=== PATIENT | male | born 1955 | race Caucasian/White ===

== ENCOUNTER 2019-07-03 17:29 | Inpatient (IN) | payer BC ==
[~2019-07-03 17:29] MED LIST: ISOVUE-370 76%-LOCM 1 ML ONE; Rocuronium Bromide 10 MG/ML (10ML VIAL) ONE; Succinylcholine Chloride 20 MG/ML 10 ml SYRINGE FS ONE
[2019-07-03 18:00] LABS: #Lymphocytes 0.5 thou/uL (1.20-3.40); #Monocytes 0.4 thou/uL (0.11-0.59); #Neutrophils 7.7 thou/uL (1.40-6.50); %Basophils 0.2 % (0.0-1.0); %Eosinophils 0.3 % (0.0-10.0); %Lymphocytes 5.9 % (21.0-51.0); %Monocytes 4.6 % (0.0-10.0); Hemoglobin 11.7 g/dL (14.0-18.0); Mean Corpuscular Hemoglobin 31.2 pg (27.0-31.0); Mean Corpuscular Volume 91.8 fL (78.0-98.0); Mean Platelet Volume 8.7 fL (7.4-10.4); Platelet Count 151 thou/uL (130-400); RBC Distribution Width 12.6 % (11.5-14.5); Red Blood Cell (RBC) Count 3.76 mill/uL (4.70-6.10); White Blood Cell (WBC) Count 8.6 thou/uL (4.8-10.8)
[2019-07-03 18:21] LABS: ALT (SGPT) 21 U/L (8-55); AST (SGOT) 22 U/L (5-34); Albumin 4.4 g/dL (3.4-4.8); Alkaline Phosphatase 83 U/L (40-110); Anion Gap 17 mmol/L (10-20); BUN (Urea Nitrogen) 32 mg/dL (8.4-25.7); Bilirubin, Total 0.9 mg/dL (0.2-1.2); Calc. Creatinine Clearance 0 mL/min (70-130); Calcium 9.6 mg/dL (7.8-10.44); Carbon Dioxide 17 mmol/L (23-31); Chloride 107 mmol/L (98-107); Estimated GFR-MDRD 31; Glucose 124 mg/dL (80-115); Lipase 70 U/L (8-78); Protein, Total 7.4 g/dL (5.8-8.1); Sodium 136 mmol/L (136-145)
[2019-07-03] MEDS ORDERED: Ondansetron PF 4 MG/2 ML Vial ONE (18:28)
[2019-07-03] MEDS ORDERED: Morphine 4 MG/ML VIAL ONE (18:28)
--- NOTE | 2019-07-03 19:43 | CT ---
CT ABDOMEN AND PELVIS WITH IV CONTRAST 07/03/2019 CLINICAL INFORMATION: Lower abdominal pain after eating one day ago. Vomiting. COMPARISON: 04/15/2013 FINDINGS: Contrast was injected via the right foot. However the contrast persists in right lower extremity vein s without enhancement of the parenchymal organs or remaining vascular structures. This examination is primarily a noncontrasted CT exam with respect to parenchymal organs. Lower Chest: Calcified granuloma seen right lung base. Lung bases are otherwise clear. Vessels: Scattered mild vascular calcifications are seen in the abdominal aorta and involving the rickie ac arteries. Abdomen: Gallbladder: Within normal limits for CT imaging. Suggested gallbladder calculi noted on prior CT exa m are not well delineated on this study. Liver: Grossly normal nonenhanced CT appearance. Spleen: Grossly normal nonenhanced CT appearance. Pancreas: Grossly normal nonenhanced CT appearance Adrenals: Grossly normal nonenhanced CT appearance. Kidneys: Renal cortical thinning is seen with moderate appearance the kidneys bilaterally. No renal o r ureteral calculi are seen bilaterally. Bowel: There are postsurgical changes in the region of the rectum with anastomosis present in this re gion. Dilated fluid-filled loops of ileum are visualized. Loops of jejunum are more normal in caliber. There is a transition point seen within the lower pelvis. The dilated loops of fluid-filled bowel measure up to 4.7 cm. Findings may represent a closed loop type obstruction. There are postsurgical changes involving loops of small bowel in the right abdomen at site of prior r ight lower quadrant ostomy. Loops of small bowel associated with postsurgical changes in this region are normal in caliber. Appendix: The appendix is visualized and normal in caliber. Peritoneum/retroperitoneum: Tiny amount of fluid is seen in the right lower quadrant adjacent to the dilated loops of small bowel. There is soft tissue appearing density in the presacral space posterior to the rectum which may related to scarring secondary to prior postsurgical changes as this is in the region of the anastomosis. However, no prior studies are available to evaluate for stability of this area. Abdominal Wall: Midline scarring is present. Pelvis: Reproductive Organs: No pelvic masses. Pelvis within normal limits. Bladder: within normal limits. Bones: Multilevel degenerative changes are seen in the spine. IMPRESSION: 1. Evidence of a small bowel obstruction, and findings may be related to closed loop small bowel obst ruction as only portions of loops of small bowel are dilated with transition point seen in the upper pelvis just to the right of midline. Loops of small bowel measure up to 4.7 cm. 2. Tiny amount of free fluid adjacent to dilated loops of small bowel. 3. Postsurgical changes involving the rectum as well as a loop of small bowel in the right lower quad rant. As described above, there is soft tissue density seen posterior to the rectum in a presacral location which is probably related to scarring as this is at the at the level of postsurgical change. Depending on clinical concern, follow-up evaluation can be performed..
[2019-07-03] MEDS ORDERED: Benzocaine 20% Spray 60 ML CAN ONE ×2 (19:55→19:57)
[2019-07-03] MEDS ORDERED: Fentanyl 100 MCG/2 ML VIAL ONE (19:55)
[2019-07-03] MEDS ORDERED: Pantoprazole 40 MG VIAL ONE (20:14)
[2019-07-03] MEDS ORDERED: Bupivacaine/Epinephrine 0.25% 30 ML VIAL ONE (20:38)
--- NOTE | 2019-07-03 20:51 | RAD ---
SUPINE ABDOMEN: 07/03/19 INDICATION: Assess NG tube placement. FINDINGS/IMPRESSION: NG tube passes through the EG junction. The tip overlies the upper gastric fundus in the left upper q uadrant. There are gas filled dilated loops of small bowel noted in the mid abdomen. Stool and gas se en in the colon. POS: AGW
[2019-07-03] MEDS ORDERED: cefOXitin 2 GM VIAL ONE (21:07)
[2019-07-03] MEDS ORDERED: Midazolam HCl 2 mg/2 ml Vial ONE (21:19)
[2019-07-03] MEDS ORDERED: Norepinephrine 4 MG/4 ML VIAL ONE (21:19)
--- NOTE | 2019-07-04 01:21 | HP ---
CHIEF COMPLAINT: Abdominal pain. HISTORY OF PRESENT ILLNESS: Mr. Burton is a 63-year-old man with acute onset of severe abdominal pain last night after eating dinner. He has never had any pain like this before. He states that he hoped that the pain will go away after a good night's sleep, but he had difficulty sleeping, because of the pain. When he woke up this morning, it was just as bad as it was last night. He tried to tough it out at home, had multiple episodes of nausea and vomiting, which did not relieve the pain and finally came into the emergency room, because the pain was excruciating. He states that it has been constant and severe since its onset, but has been relieved by pain medication and NG tube placement in the emergency room. He has not had any fevers or chills. He had a small bowel movement this morning, which did not relieve his pain, but has not passed any gas since yesterday. PAST MEDICAL HISTORY: Coronary artery disease, chronic renal insufficiency, severe osteoarthritis, rectal cancer, hyperlipidemia, hypertension and obstructive sleep apnea. The patient denies knowledge of any history of heart failure, but does take Lasix when he notices worsening swelling in his legs or that he gets winded easily. He does not know what his last ejection fraction was and has not seen his swimming pool installer in about 2 years, although he is quite active in his daily life. . PAST SURGICAL HISTORY: Left shoulder surgery, right knee replacement, low anterior resection with diverting ileostomy by Dr. Braswell in 2013 with subsequent ileostomy reversal, coronary artery bypass grafting [place] [address] Fall and coronary stents by Dr. Yadav in 2013. SOCIAL HISTORY: Patient quit smoking about a year ago. No history of heavy alcohol use or drug use. FAMILY HISTORY: Noncontributory. REVIEW OF SYSTEMS: Negative except per HPI. The patient does have chronic back and joint pain, which limits his activity, but he denies any exertional angina. ALLERGIES: NO KNOWN DRUG ALLERGIES. MEDICATIONS: Include: 1. Amlodipine. 2. Carvedilol. 3. Fluoxetine. 4. Tylenol No. 4. 5. Atorvastatin. 6. Aspirin. 7. Tizanidine. PHYSICAL EXAMINATION: VITAL SIGNS: The patient is not tachycardic or hypotensive. Room air sats are okay, respiratory rate is normal. He had 10/10 abdominal pain when he arrived, but denies pain at rest after receiving morphine and fentanyl. GENERAL: Reveals a healthy-appearing man, in no acute distress. He is not flushed or toxic in appearance. He is not jaundiced or icteric. HEENT: Unremarkable. NECK: Supple without lymphadenopathy or thyroid nodules. HEART: Regular in its rate and rhythm without murmurs, rubs, or gallops. LUNGS: Clear to auscultation bilaterally. ABDOMEN: Soft, but distended. He has a healed midline incision without palpable masses or obvious hernias. He is diffusely tender to palpation with some guarding in the lower abdomen. He exhibits rebound tenderness in the right greater than left lower quadrant. No rigidity. EXTREMITIES: Warm and well perfused without significant edema. NEUROLOGIC: No focal deficits. PSYCHIATRIC: Alert, oriented and appropriate. LABORATORY DATA: White count is normal at 8.6, hematocrit is 34.5, platelets 151. BUN and creatinine are elevated at 32 and 2.19. This does not appear to be significantly elevated from his baseline. His creatinine was 1.97 and 2.17 in 2015. IMAGING: CT images are reviewed and I agree with the written report. The patient has a very dilated loop of small intestine with some free fluid surrounding this dilated loop in the pelvis. He has very decompressed distal small bowel and normal caliber proximal small bowel, very concerning for closed loop obstruction. His stomach is dilated and fluid-filled, but he has an NG tube in place and over 500 mL of thick enteric contents have been removed from the stomach since that CT was done. ASSESSMENT: Small bowel obstruction with peritoneal signs on exam and concern for closed loop obstruction on CT. I believe the patient has bowel at risk for irreversible damage, although his lactate currently is normal. I have recommended proceeding emergently to the operating room tonight for lysis of adhesions and possible small bowel resection if irreversible damage is encountered. The patient is in agreement with this plan. Inherent risks include, but are not limited to, bleeding, infection, risks of anesthesia, damage to bowel or other intraabdominal structures, anastomotic leak, and need for other procedures. He understands and accepts these risks and wishes to proceed and has been posted emergently for the operating room. Antibiotics radiation monitor have been ordered. All of his questions were answered. We will consult Cardiology for assistance with perioperative management as well as his trolley cleaner, Dr. Bearden. Job ID: [id number] [facility]
[2019-07-04] MEDS ORDERED: Rocuronium Bromide 50 MG/5 ML VIAL ONE (03:14)
[2019-07-04] MEDS ORDERED: Fentanyl BOLUS 250 ML IVPB PRN (04:22)
[2019-07-04] MEDS ORDERED: DISCONTINUE PREVIOUS NARCOTIC PAIN MEDICATIONS AND BENZODIAZEPINES FS SCH (04:22)
[2019-07-04] MEDS ORDERED: Morphine 2 MG/ML SYRINGE SLOW IVP PRN ×2 (04:22→09:52)
[2019-07-04] MEDS ORDERED: Lorazepam 2 MG/ML VIAL SLOW IVP PRN (04:22)
[2019-07-04] MEDS ORDERED: Propofol 1,000 MG/100 ML VIAL IV PRN (04:22)
[2019-07-04] MEDS ORDERED: fentaNYL Citrate/PF 2,000 MCG in Sodium Chloride 0.9% 60 ML IV SCH (04:22)
[2019-07-04] MEDS ORDERED: Propofol BOLUS 1,000 MG/100 ML VIAL IV PRN (04:22)
[2019-07-04] MEDS: Sodium Chloride 0.9% 1,000 ML IV SCH ×3 (04:40→19:43)
[2019-07-04] MEDS: cefOXitin Sodium/Dextrose,Iso 1 GM in Premix Bag 1 BAG IVPB SCH ×2 (05:04→14:45)
[2019-07-04 05:09] LABS: Hemoglobin 10.8 g/dL (14.0-18.0); Mean Corpuscular Hemoglobin 30.6 pg (27.0-31.0); Mean Corpuscular Volume 92.6 fL (78.0-98.0); Mean Platelet Volume 8.4 fL (7.4-10.4); Platelet Count 136 thou/uL (130-400); RBC Distribution Width 12.6 % (11.5-14.5); Red Blood Cell (RBC) Count 3.54 mill/uL (4.70-6.10); White Blood Cell (WBC) Count 5.3 thou/uL (4.8-10.8)
[2019-07-04 05:25] LABS: Band 32 % (5-11); Eosinophils 1 % (0-10); Lymphocytes 4 % (21-51); MDiff Complete? YES; Metamyelocyte 1 % (0-0); Monocytes 5 % (0-10); Neutrophil 57 % (42-75); Platelet Morphology Comment Appears Adequate
[2019-07-04 05:26] LABS: ALT (SGPT) 14 U/L (8-55); AST (SGOT) 15 U/L (5-34); Albumin 3.4 g/dL (3.4-4.8); Alkaline Phosphatase 67 U/L (40-110); Anion Gap 12 mmol/L (10-20); BUN (Urea Nitrogen) 36 mg/dL (8.4-25.7); Bilirubin, Total 0.9 mg/dL (0.2-1.2); Calc. Creatinine Clearance 0 mL/min (70-130); Calcium 7.9 mg/dL (7.8-10.44); Carbon Dioxide 20 mmol/L (23-31); Chloride 111 mmol/L (98-107); Estimated GFR-MDRD 31; Globulin 2.2 g/dL (2.4-3.5); Glucose 165 mg/dL (80-115); Potassium 4.7 mmol/L (3.5-5.1); Protein, Total 5.6 g/dL (5.8-8.1); Sodium 138 mmol/L (136-145)
[2019-07-04] MEDS ORDERED: FLU VACC QS2019-20(6MOS UP)/PF 60 MCG/0.5 ML SYRINGE IM ONE (05:45)
[2019-07-04] MEDS ORDERED: DC Sedation Protocol FS ONE (08:39)
--- NOTE | 2019-07-04 09:51 | RAD ---
FRONTAL RADIOGRAPH CHEST: Date: 07/04/19 COMPARISON: 12/01/15. HISTORY: Evaluate chest following central line placement. FINDINGS: Endotracheal tube and nasogastric tube in proper position. Left-sided vascular catheter present, dist al tip overlying the region of the proximal SVC. Stable right-sided Port-A-Cath. Increased linear den sity in the left base may signify infiltrate or volume loss. IMPRESSION: Lines and tubes as detailed above. POS: OFF
[2019-07-04] MEDS ORDERED: Morphine 4 MG/ML VIAL ONE (09:54)
[2019-07-04] MEDS: Enoxaparin Sodium 30 MG/0.3 ML SYRINGE SC SCH (10:21)
[2019-07-04] MEDS: Pantoprazole 40 MG VIAL IVP SCH (10:21)
[2019-07-04] MEDS: Acetaminophen 650 MG in Premix Bag 1 BAG IVPB SCH ×2 (10:44→17:16)
[2019-07-04] MEDS ORDERED: Carvedilol 25 MG TAB PER TUBE SCH (11:15)
--- NOTE | 2019-07-04 11:53 | CON ---
DATE OF CONSULTATION: REASON FOR CONSULTATION: Elevated creatinine. HISTORY OF PRESENT ILLNESS: This is a very pleasant 63-year-old gentleman, who presented to the hospital with a history of CKD in the past with abdominal pain with small bowel obstruction. The patient's creatinine was 1.9 previously, which increased to 2.1 today, so I was consulted. The patient has not seen a hris specialist in five years. PAST MEDICAL HISTORY: Significant for coronary artery disease, CKD, osteoarthritis, rectal cancer, hyperlipidemia, left shoulder surgery, right knee replacement, and diverting ileostomy. SOCIAL HISTORY: No alcohol or drug use. FAMILY HISTORY: Negative for ESRD. ALLERGIES: REVIEWED. HOME MEDICATIONS: List reviewed. REVIEW OF SYSTEMS: A 15-point review of system was performed, negative except for positives noted above. GENERAL: HEAD: NECK: No swelling or lumps. NOSE: No epistaxis or discharge. EYES: No diplopia or pain. RESPIRATORY: CARDIOVASCULAR: GASTROINTESTINAL: /MANUFACTURING LEADER: MUSCULOSKELETAL: No joint pain. NEUROPSYCHIATRIC SYSTEMS: No suicidal ideation. No ideation. SKIN: Denies any rash or ulcer. CONSTITUTIONAL: No fever or chills. PHYSICAL EXAMINATION: GENERAL: The patient is awake and alert. VITAL SIGNS: Afebrile, pulse 81, breathing 16, and blood pressure 176/60. GENERAL APPEARANCE AND MENTAL STATUS: Fair. HEAD/NECK: Normocephalic. Atraumatic. EYES: EOMI. No deformity. EARS: Clear. No ulcers. NOSE: Intact. No lesions. MOUTH: Clear. No discharge. THROAT: Clear. No exudate. LUNGS: Clear. No crackles. CARDIAC: S1, S2. No rub. ABDOMEN: Benign. Bowel sounds positive. GENITALIA/RECTUM: Masters absent. BACK/EXTREMITIES: Edema 0+. NEUROLOGICAL: Alert and motor intact. SKIN: LYMPHATICS: LABORATORY DATA: Hemoglobin is 10.8 and creatinine 2.0. ASSESSMENT: Acute kidney injury with chronic kidney disease stage 3 due to acute tubular necrosis because of decreased effective arterial blood volume. Continue gentle hydration; hypertension, anemia, stable. No indication for dialysis at this time. Job ID: [id number]
[2019-07-04] MEDS: Morphine 4 MG/ML VIAL SLOW IVP PRN (12:33)
--- NOTE | 2019-07-04 12:34 | CON ---
DATE OF CONSULTATION: HISTORY OF PRESENT ILLNESS: José Luis Burton is a 63-year-old morbidly obese gentleman, who underwent emergency surgery last night, left overnight on the vent. Pulmonary is consulted regarding his vent management. He was presented with abdominal pain. CT abdomen shows small bowel obstruction, closed-loop obstruction, small amount of free fluid was seen. PLAN: He was taken to surgery. Please review the surgeon's note. On the vent this morning, he is awake, alert, and responsive. Still having some abdominal pain, but tells me he is much improved. Denies difficulty breathing. PAST MEDICAL HISTORY: Chronic renal failure, sleep apnea, morbid obesity, colon cancer, hypertension, hyperlipidemia, COPD. PAST SURGICAL HISTORY: CABG, lumbar surgery, shoulder surgery, small-bowel ileostomy, MediPort placement. SOCIAL HISTORY: Still smoking. Alcohol minimal. HOME MEDICATIONS: Include, 1. Amlodipine/benazepril . 2. Coreg 25. 3. Tizanidine. 4. Lipitor 80. 5. Tylenol. 6. Prozac. ALLERGIES: NONE. SOCIAL HISTORY: Otherwise unremarkable. FAMILY HISTORY: Noncontributory. PHYSICAL EXAMINATION: GENERAL: On the vent, he is awake, alert, responsive. VITAL SIGNS: Pulse 81, blood pressure 130/70, saturations 100%, respirations 20. CHEST: Decreased breath sounds. No wheezing. CARDIAC: Normal S1 and S2. No gallops. ABDOMEN: Soft. EXTREMITIES: No edema. NEUROLOGIC: He is awake, alert, and responsive. DIAGNOSTIC DATA: X-ray shows questionable left-sided infiltrate. White count 5000, hemoglobin and hematocrit 10 and 32, platelet count 136. LABORATORY DATA: Creatinine 2.16. ASSESSMENT: 1. Status post lap, acute abdomen. 2. Respiratory failure. 3. Chronic obstructive pulmonary disease. 4. Sleep apnea. 5. Azotemia. 6. History of colon cancer. He will be weaned and extubated. Neb treatment. PT. Supportive care. Home CPAP. 45 minutes of critical time. Job ID: [id number]
[2019-07-04] MEDS ORDERED: Fentanyl 100 MCG/2 ML VIAL SLOW IVP SCH (14:45)
[2019-07-04] MEDS: Morphine Sulfate 100 MG in Dextrose 5% in Water 98 ML IV SCH (15:36)
[2019-07-04] MEDS: Acetaminophen 1,000 MG in Premix Bag 1 BAG IVPB SCH (16:51)
--- NOTE | 2019-07-04 17:52 | CON ---
DATE OF CONSULTATION: 07/04/2019 REASON FOR CONSULTATION: CAD and history of ischemic cardiomyopathy. PRIMARY MATERIALS ASSISTANT: Adolph Yadav MD HISTORY OF PRESENT ILLNESS: Mr. Burton is a pleasant 63-year-old white gentleman, who comes to the hospital for abdominal pain. He was diagnosed with an obstructed abdomen, so he was taken emergently to the OR, where he had lysis of adhesions. He has a history of coronary artery disease, status post CABG x4 in 2013. He followed up with Dr. Yadav up until 2016, at which point, he changed insurance and had to change binder technician. He only saw one more binder technician one time in 2016, he has not seen anyone since. He denies any chest pain, tightness, or pressure. He is awake and only complaining of abdominal pain. PAST MEDICAL HISTORY: 1. Chronic kidney disease. 2. Sleep apnea. 3. Obesity. 4. History of colon cancer. 5. Hypertension. 6. Hyperlipidemia. 7. COPD. 8. Coronary artery disease. SURGICAL HISTORY: 1. CABG x4. 2. Lumbar surgery. 3. Shoulder surgery. 4. Small bowel ileostomy. 5. MediPort placement. OUTPATIENT MEDICATIONS: 1. Amlodipine/benazepril 10/40 p.o. daily. 2. Coreg 25 mg a day. 3. Tizanidine. 4. Aspirin 81 mg a day. 5. Atorvastatin 80 mg at bedtime. 6. Tylenol No. 3. 7. Fluoxetine daily. ALLERGIES: NO KNOWN DRUG ALLERGIES. SOCIAL HISTORY: Continues to smoke. No alcohol or drugs. FAMILY HISTORY: Noncontributory. REVIEW OF SYSTEMS: A 12-point review of systems was done and was all negative unless stated in the history of present illness. PHYSICAL EXAMINATION: VITAL SIGNS: Temperature 101.4, heart rate 91, respiratory rate 22, and saturating 94% on room air. GENERAL: Awake, alert, and oriented x3, in moderate pain. HEENT: Normocephalic and atraumatic. NECK: Supple. LUNGS: Clear. CARDIOVASCULAR: S1 and S2. No S3 or S4. No murmurs. ABDOMEN: Tender. No rebound or guarding. EXTREMITIES: Trace edema. SKIN: Warm and dry. LABORATORY DATA: Laboratory work was reviewed. CBC with a white count of 8.6, hemoglobin 11.7, hematocrit of 34, and platelet count of 151. Chemistries were unremarkable. Creatinine is 2.1. GFR of 31, which is close to baseline. Troponin was negative x1. Albumin of 4.4, down to 3.4. EKG was reviewed, sinus tachycardia. ASSESSMENT: 1. Small bowel obstruction, status post laparoscopic procedure and lysis of adhesions. 2. Abdominal pain. 3. History of coronary artery disease, stable at this time. No evidence of an acute coronary syndrome. PLAN: 1. We will plan on doing an echocardiogram to assess LV function valvular structure. 2. His EF went from 10% back to normal. The last evaluation we have on file is from a stress test back in 2014 and his EF was 49% at that time. We will repeat echocardiogram. Thank you for letting us to participate in the care of your patient. Dr. Yadav, his primary binder technician will follow up in the morning. Job ID: [id number]
--- NOTE | 2019-07-04 20:34 | PRG ---
DATE OF SERVICE: 07/04/2019 SUBJECTIVE: The patient is having a fair amount of abdominal pain. This morning, he did extubate without problems and is breathing okay, although it hurts to take a deep breath. The pain is sharp and mostly in the lower abdomen. After receiving some morphine, the pain became more dull in quality, but is still present and limiting his activities and ability to sleep. His incisions look good. Bowel sounds are present, although hypoactive. He is diffusely tender and slightly distended. NG is sumping well and has green bilious thick output. He has had about 350 in the past few hours. Vital signs are okay except for some hypertension, and I did restart his Coreg. ASSESSMENT AND PLAN: On postop day #0, from extensive lysis of adhesions for small-bowel obstruction, no return of bowel function yet, although bowel sounds are present. He has not passed gas. NG output is still bilious. Since the NG tube is functioning well, he can have some ice chips. I asked Pain Management to get him a LABORER PIE BAKERY for pain management since he is more uncomfortable since the sedation protocol has been discontinued. Physical Therapy is going to work on getting him mobilized. Job ID: [id number] [facility]
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
[2019-07-05] MEDS: Acetaminophen 1,000 MG in Premix Bag 1 BAG IVPB SCH ×3 (00:26→11:55)
[2019-07-05] MEDS: Acetaminophen 650 MG in Premix Bag 1 BAG IVPB SCH ×2 (00:26→09:24)
[2019-07-05] MEDS: Sodium Chloride 0.9% 1,000 ML IV SCH ×3 (00:50→18:34)
[2019-07-05 04:55] LABS: Anion Gap 14 mmol/L (10-20); BUN (Urea Nitrogen) 38 mg/dL (8.4-25.7); Calc. Creatinine Clearance 58 mL/min (70-130); Calcium 7.7 mg/dL (7.8-10.44); Carbon Dioxide 19 mmol/L (23-31); Chloride 114 mmol/L (98-107); Estimated GFR-MDRD 29; Glucose 94 mg/dL (80-115); Potassium 4.5 mmol/L (3.5-5.1); Sodium 142 mmol/L (136-145)
[2019-07-05 05:05] LABS: Band 36 % (5-11); Eosinophils 2 % (0-10); Hemoglobin 8.8 g/dL (14.0-18.0); Lymphocytes 13 % (21-51); MDiff Complete? YES; Mean Corpuscular HGB CONC 32.4 g/dL (32.0-36.0); Mean Corpuscular Hemoglobin 30.7 pg (27.0-31.0); Mean Corpuscular Volume 94.8 fL (78.0-98.0); Mean Platelet Volume 8.5 fL (7.4-10.4); Monocytes 15 % (0-10); Neutrophil 34 % (42-75); Platelet Count 100 thou/uL (130-400); Platelet Morphology Comment Appears Decreased; RBC Distribution Width 12.6 % (11.5-14.5); Red Blood Cell (RBC) Count 2.87 mill/uL (4.70-6.10); White Blood Cell (WBC) Count 2.3 thou/uL (4.8-10.8)
[2019-07-05] MEDS ORDERED: Acetaminophen 650 MG Suppository PR PRN (08:09)
[2019-07-05] MEDS ORDERED: Acetaminophen 650 MG/20.3 ML UDCUP PO PRN (08:09)
--- NOTE | 2019-07-05 09:02 | PRG ---
DATE OF SERVICE: 07/05/2019 SUBJECTIVE: The patient has done well since extubation. He is complaining of thirst. OBJECTIVE: VITAL SIGNS: Temperature 99.3, pulse 86, blood pressure 143/42, and O2 saturation 94%. HEENT: Unremarkable. NECK: No adenopathy or JVD. CHEST: Clear to auscultation. CARDIAC: S1 and S2. Regular. ABDOMEN: Midline surgical scar noted, healing well. ABDOMEN: Somewhat distended. Bowel sounds hypoactive. EXTREMITIES: No edema. LABORATORY DATA: White blood cell count 2.3, hematocrit 27.2, and platelet count 100. Sodium 142, potassium 4.5, chloride 114, CO2 of 19, BUN 38, creatinine 2.3, and glucose 94. ASSESSMENT: 1. Status post laparotomy for adhesiolysis. 2. Status post respiratory failure, requiring mechanical ventilation. 3. Renal insufficiency, which is probably chronic. PLAN: 1. From my standpoint, he can be transferred out to the surgical floor. He is continuing IV fluid hydration. 2. Initiate physical therapy and incentive spirometry. Job ID: [id number]
--- NOTE | 2019-07-05 09:32 | PDOC.GSPN ---
Surgery Progress Note: Subj - Subjective Narrative: Feels better today. He got some sleep. Abdomen is still sore but not as bad as yesterday. He has not passed gas yet. No nausea. The NG tube is working well. He did have some fevers yesterday afternoon and evening which improved after incentive spirometry. He could only pull 500 at first but he is now up to 1750. Other vital signs look good. Abdomen is soft and distended with hypoactive bowel sounds. Incisions are clean and healthy. He has diffuse tenderness but less than yesterday. Hematocrit has gone down somewhat but urine output is good and BUN and creatinine are basically stable. I'm going to recheck his H&H this afternoon before resuming Lovenox. Physical therapy is working with him but he hasn't gotten out of bed yet. White count is low and he still has a bandemia but the left shift has improved. Assessment/plan. Postoperative day one status post extensive laparoscopic hand- assisted lysis of adhesions. Anticipated ileus continues. This may be prolonged given his extensive adhesions and suspected chronic partial obstruction. He had been having crampy postprandial abdominal pain and chronic constipation for months before coming into the hospital with his acute episode. His H&H is drifted down somewhat to recheck that this afternoon before resuming Lovenox. He is on Coreg. I haven't restarted his other home medications; primary care and cardiology have been consulted. He is doing better on incentive spirometry and his temperature has normalized. We will work on getting him mobilized today. Surgery Progress Note: Obj - Vital signs Vital signs: Vital Signs - Most Recent Temp Pulse Resp BP Pulse Ox 99.5 F 85 12 110/65 96 07/05/19 07:00 07/05/19 07:07 07/05/19 07:07 07/04/19 13:25 07/05/19 07:07 Surgery Progress Note: Results - Labs Result Diagrams: 07/05/19 04:10 07/05/19 04:10 Lab results: Laboratory Results - last 24 hr 07/05/19 07/05/19 04:10 04:10 WBC 2.3 L RBC 2.87 L Hgb 8.8 L Hct 27.2 L MCV 94.8 MCH 30.7 MCHC 32.4 RDW 12.6 Plt Count 100 L MPV 8.5 Neutrophils % (Manual) 34 L Band Neuts % (Manual) 36 H Lymphocytes % (Manual) 13 L Monocytes % (Manual) 15 H Eosinophils % (Manual) 2 Plt Morphology Comment Appears Decreased L Sodium 142 Potassium 4.5 Chloride 114 H Carbon Dioxide 19 L Anion Gap 14 BUN 38 H Creatinine 2.30 H Estimated GFR (MDRD) 29 Glucose 94 Calcium 7.7 L
--- NOTE | 2019-07-05 09:48 | PDOC.OP ---
Operative Note - Operative Note Operative Note: PROCEDURE: Laparoscopic hand-assisted lysis of adhesions SURGEON: Paula Gee M.D. DATE: 07/04/2019 PREOPERATIVE DIAGNOSIS: Small bowel obstruction POSTOPERATIVE DIAGNOSIS: Small bowel obstruction HISTORY: Patient with severe small bowel obstruction with peritonitis on exam and evidence of closed loop obstruction on CT. Recommendation was made to proceed emergently to the operating room for lysis of adhesions and possible bowel resection. PROCEDURE IN DETAIL: After informed consent was obtained and appropriate preoperative antibiotics were administered the patient was taken to the operating room he was placed in the supine position and general endotracheal anesthesia was administered. An art line and central line were placed by anesthesia for intraoperative monitoring. The bladder was decompressed with a Masters catheter and the patient was prepped and draped in a standard sterile fashion. Local anesthesia was infused the skin and subcutaneous tissues in the periumbilical area and a 6 cm incision made in the previous scar. Dissection was carried down to the fascia which was incised in the midline. The peritoneum was identified and opened under direct vision. There are no significant omental or bowel adhesions seen. The fascial incision was extended along the length of the skin incision and a GelPort placed. Serosanguineous peritoneal fluid was encountered as the abdomen was open but there was no odor and no visible necrotic bowel. Carbon dioxide gas was insufflated to an intra-abdominal pressure of 15 which the patient tolerated well. Local anesthesia was placed to the skin and subcutaneous tissues of the epigastric and lateral abdomen and trochars were placed under direct vision. The patient had dense omental and bowel adhesions at the site of his old ileostomy which were carefully taken down through the avascular plane. The ileum in this area was completely decompressed and normal in caliber but densely adherent to the anterior abdominal wall. And areas parts of the peritoneum were left in continuity with the bowel rather than risk injuring the bowel. The stapled anastomosis was identified and appeared to be widely patent by palpation and inspection. Additional dissecting trochars were placed under direct laparoscopic vision and attention turned to the obstructed bowel. Most of this was obscured by omentum which was densely adherent to the underlying bowel, but it all appeared viable although very distended and inflamed. The omental adhesions were carefully taken down through the avascular plane and the omentum was mobilized superiorly. The distended bowel was densely adherent to the pelvis and once the dense adhesions in this area on the right were divided the distal ileum which had previously been decompressed distended with gas suggesting that the transition point was in this area although the actual transition point was never clearly visualized. There were multiple interloop adhesions as well which were taken down as they were encountered. As dissection was carried out toward the left abdomen the bowel was found to be adherent to the descending colon and the retroperitoneum in this area. There were relatively decompressed loops of proximal bowel visible behind the distended loops of bowel. As the dense adhesions were taken down between the bowel omentum retroperitoneum and descending colon, the decompressed proximal bowel loops became progressively more distended suggesting that the proximal transition point had also been addressed. Meticulous dissection was undertaken to completely mobilize the entire bowel. The patient had extensive interloop adhesions as well as adhesions to the omentum, retroperitoneum, and colon, all of which were completely mobilized. The bowel was then run 3 times from the ligament of Treitz to the ileocecal valve and no evidence of bowel injury was encountered. As previously stated the bowel was distended and inflamed but appeared entirely viable. The patient was noted to have hard stool throughout the entire colon consistent with chronic partial obstruction, which was also in keeping with the intraoperative findings. The abdomen was copiously irrigated with warm saline until all return was clear. Since no electrocautery was used in proximity to the bowel and extensive adhesio lysis have been undertaken, there had been slow minor bleeding throughout the case, but no significant episodes of bleeding. There was one small peripheral mesenteric vessel injury which was controlled with LigaSure, and the bowel in this area appeared entirely viable on reexamination throughout the case. The bowel was confirmed to be in its normal anatomic position and the NG tube in good position in the stomach which was decompressed. The omentum was drawn downward and the dissecting trochars removed under direct laparoscopic vision and hemostasis confirmed. The GelPort was then removed and Seprafilm placed between the abdominal contents and the incision. The incision was closed with a running PDS suture under direct vision with excellent technical result. Additional local anesthesia was infused for postoperative pain control. The subcutaneous tissues were reapproximated with 3- 0 Monocryl and all skin incisions closed with 4-0 Monocryl. Dermabond dressings were placed and the patient was extubated and taken intubated to CCU in good condition. Estimated blood loss was 150 mL's. There were no complications. There were no specimens.
[2019-07-05] MEDS: Carvedilol 25 MG TAB PER TUBE SCH (09:51)
[2019-07-05] MEDS: Docusate Sodium 100 MG/10 ML UDCUP PO SCH (09:51)
[2019-07-05] MEDS: Enoxaparin Sodium 30 MG/0.3 ML SYRINGE SC SCH ×2 (09:53→21:08)
[2019-07-05] MEDS: Pantoprazole 40 MG VIAL IVP SCH (09:53)
[2019-07-05 14:39] LABS: Hemoglobin 8.8 g/dL (14.0-18.0); Mean Corpuscular HGB CONC 32.4 g/dL (32.0-36.0); Mean Corpuscular Hemoglobin 31.1 pg (27.0-31.0); Mean Corpuscular Volume 95.9 fL (78.0-98.0); Mean Platelet Volume 8.5 fL (7.4-10.4); Platelet Count 108 thou/uL (130-400); RBC Distribution Width 12.7 % (11.5-14.5); Red Blood Cell (RBC) Count 2.84 mill/uL (4.70-6.10); White Blood Cell (WBC) Count 1.9 thou/uL (4.8-10.8)
[2019-07-05] MEDS: Metoprolol Tartrate 5 MG/5 ML VIAL IVP SCH ×2 (15:04→21:02)
[2019-07-05 15:05] LABS: Band 34 % (5-11); Eosinophils 10 % (0-10); Lymphocytes 18 % (21-51); MDiff Complete? YES; Metamyelocyte 2 % (0-0); Monocytes 2 % (0-10); Neutrophil 34 % (42-75); Nucleated RBC 1 % (0); Platelet Morphology Comment Appears Decreased
--- NOTE | 2019-07-05 15:12 | PRG ---
DATE OF SERVICE: 07/05/2019 SUBJECTIVE: A 63-year-old gentleman, being seen for acute kidney injury. The patient denied nausea, vomiting, or chest pain. OBJECTIVE: GENERAL: The patient is awake and alert. VITAL SIGNS: Pulse 82, breathing 16, blood pressure 125/78. GENERAL APPEARANCE AND MENTAL STATUS: Fair. HEAD/NECK: Normocephalic. Atraumatic. EYES: EOMI. No deformity. EARS: Clear. No ulcers. NOSE: Intact. No lesions. MOUTH: Clear. No discharge. THROAT: Clear. No exudate. LUNGS: Clear. No crackles. CARDIAC: S1, S2. No rub. ABDOMEN: Benign. Bowel sounds positive. GENITALIA/RECTUM: Masters absent. BACK/EXTREMITIES: Edema 0+. NEUROLOGICAL: Alert and motor intact. SKIN: LYMPHATICS: LABORATORY DATA: Showed creatinine 2.3. ASSESSMENT AND PLAN: Acute kidney injury with chronic kidney disease due to decreased effective arterial blood volume. Mild increase in creatinine. Continue hydration. Hypertension and anemia, stable. Metabolic acidosis, stable. No indication for dialysis. Job ID: [id number]
[2019-07-05] MEDS: Morphine Sulfate 100 MG in Dextrose 5% in Water 98 ML IV SCH (20:06)
[2019-07-06] MEDS: Sodium Chloride 0.9% 1,000 ML IV SCH ×4 (01:42→19:55)
[2019-07-06] MEDS: Metoprolol Tartrate 5 MG/5 ML VIAL IVP SCH ×2 (05:37→13:20)
[2019-07-06 05:53] LABS: Anion Gap 15 mmol/L (10-20); BUN (Urea Nitrogen) 38 mg/dL (8.4-25.7); Calc. Creatinine Clearance 59 mL/min (70-130); Calcium 8.5 mg/dL (7.8-10.44); Carbon Dioxide 16 mmol/L (23-31); Chloride 111 mmol/L (98-107); Estimated GFR-MDRD 29; Glucose 103 mg/dL (80-115); Potassium 4.4 mmol/L (3.5-5.1); Sodium 138 mmol/L (136-145)
[2019-07-06 06:21] LABS: Band 27 % (5-11); Eosinophils 3 % (0-10); Hemoglobin 8.3 g/dL (14.0-18.0); Lymphocytes 15 % (21-51); MDiff Complete? YES; Mean Corpuscular Hemoglobin 30.5 pg (27.0-31.0); Mean Corpuscular Volume 95.2 fL (78.0-98.0); Mean Platelet Volume 8.1 fL (7.4-10.4); Metamyelocyte 3 % (0-0); Monocytes 14 % (0-10); Neutrophil 38 % (42-75); Platelet Count 103 thou/uL (130-400); Platelet Morphology Comment Appears Decreased; RBC Distribution Width 12.6 % (11.5-14.5); Red Blood Cell (RBC) Count 2.71 mill/uL (4.70-6.10); White Blood Cell (WBC) Count 1.6 thou/uL (4.8-10.8)
[2019-07-06] MEDS: Docusate Sodium 100 MG/10 ML UDCUP PO SCH (09:24)
[2019-07-06] MEDS: Carvedilol 25 MG TAB PER TUBE SCH (09:24)
[2019-07-06] MEDS: Pantoprazole 40 MG VIAL IVP SCH (09:24)
--- NOTE | 2019-07-06 11:58 | PRG ---
DATE OF SERVICE: 07/06/2019 SUBJECTIVE: A 63-year-old gentleman, being seen for acute kidney injury. The patient denies any nausea, vomiting, or chest pain. OBJECTIVE: CONSTITUTIONAL: The patient is awake and alert. VITAL SIGNS: Pulse 82, breathing 16, and blood pressure 141/67. GENERAL APPEARANCE AND MENTAL STATUS: Fair. HEAD/NECK: Normocephalic. Atraumatic. EYES: EOMI. No deformity. EARS: Clear. No ulcers. NOSE: Intact. No lesions. MOUTH: Clear. No discharge. THROAT: Clear. No exudate. LUNGS: Clear. No crackles. CARDIAC: S1, S2. No rub. ABDOMEN: Benign. Bowel sounds positive. GENITALIA/RECTUM: Masters absent. BACK/EXTREMITIES: Edema 0+. NEUROLOGICAL: Alert and motor intact. SKIN: LYMPHATICS: LABORATORY DATA: Reviewed. ASSESSMENT AND PLAN: 1. Chronic kidney disease stage 3 with acute kidney injury due to acute tubular necrosis, improved. 2. Hypertension, stable. 3. Anemia, stable. 4. Medication based on GFR appropriate. Continue hydration. No indication for dialysis. Job ID: [id number]
--- NOTE | 2019-07-06 12:02 | PRG ---
DATE OF SERVICE: 07/06/2019 SUBJECTIVE: José Luis Burton is doing well today. He states his pain is slightly improved. NG tube in place. He is on sips and chips. OBJECTIVE: VITAL SIGNS: Temperature 98.7 degrees, heart rate 87, blood pressure 149/78. NG tube output for 24 hours is 6400. Urine output 420. Masters 825. Otherwise, he is voiding on his own. LUNGS: Clear to auscultation. CARDIAC: Regular rate and rhythm. No murmur or gallop. ABDOMEN: Distended. Tympanitic. Surgical wounds look good. Postoperative tenderness, but no peritoneal signs. EXTREMITIES: Unremarkable. LABORATORY DATA: White count 1.6, hemoglobin 8.3. Basic metabolic profile normal with chronic kidney disease, 38 BUN, creatinine is 2.27. ASSESSMENT AND PLAN: Continue IV fluids, n.p.o. status, NG tube. Await definitive bowel function. Increase activity. Job ID: [id number]
--- NOTE | 2019-07-06 19:31 | PDOC.CPN ---
- Subjective Date: 07/06/19 Time: 19:34 Interval history: the pt seen and examined. No overnight events. No cardiac complaints. - Objective Allergies/Adverse Reactions: Allergies Allergy/AdvReac Type Severity Reaction Status Date / Time No Known Allergies Allergy Verified 05/26/15 12:07 Visit Medications: Current Medications Acetaminophen (Tylenol Elixir) 650 mg PO Q4H PRN PRN Reason: Pain Last Admin: 07/05/19 18:52 Dose: 650 mg Acetaminophen (Tylenol) [address] Q4H PRN PRN Reason: Headache/Fever or Pain Albuterol/Ipratropium (Duoneb) 3 ml NEB [id number] [facility] Last Admin: 07/06/19 14:03 Dose: 3 ml Docusate Sodium (Colace Liquid) 100 mg PO DAILY [facility] Last Admin: 07/06/19 09:24 Dose: 100 mg Enoxaparin Sodium (Lovenox) 30 mg SC 2100 [facility] Last Admin: 07/05/19 21:08 Dose: 30 mg Sodium Chloride (Normal Saline 0.9%) 1,000 mls @ 150 mls/hr IV .Q6H40M [facility] Last Admin: 07/06/19 13:18 Dose: 1,000 mls Morphine Sulfate 100 mg/ (Dextrose/Water) 100 mls @ 0 mls/hr IV INF [facility] Last Admin: 07/05/19 20:06 Dose: 100 mls Morphine Sulfate (Morphine) 4 mg SLOW IVP Q2H PRN PRN Reason: Pain Last Admin: 07/04/19 12:33 Dose: 4 mg Pantoprazole Sodium (Protonix) 40 mg IVP DAILY [facility] Last Admin: 07/06/19 09:24 Dose: 40 mg Sodium Chloride (Flush - Normal Saline) 10 ml IVF Q12HR [facility] Last Admin: 07/06/19 09:24 Dose: 10 ml Sodium Chloride (Flush - Normal Saline) 10 ml IVF PRN PRN PRN Reason: Saline Flush Vital Signs & Weight: Vital Signs Temp Pulse Resp BP Pulse Ox 07/06/19 15:49 97.9 F 82 18 160/76 H 98 07/06/19 14:03 86 16 07/06/19 12:14 98.8 F 83 20 149/75 H 98 07/06/19 09:53 87 16 07/06/19 07:57 98.7 F 87 18 149/78 H 95 07/06/19 07:50 94 L Admit Weight 267 lb Weight 267 lb 10.259 oz - Physical Exam General: alert & oriented x3 HEENT: mucus membranes moist Neck: supple neck Cardiac: regular rate and rhythm, S1/S2 Lungs: decreased breath sounds Neuro: cranial nerve 2-12 intact Abdomen: other (NPO) Extremities: no cyanosis Musculoskeletal: decreased range of motion - Labs Result Diagrams: 07/06/19 05:10 07/06/19 05:10 Troponin/CKMB Troponin I Less than 0.010 ng/mL (< 0.028) 07/03/19 17:50 - Assessment/Plan Assessment/Plan: 1. SBO with s/p Ex Lap hand-assisted lysis of adhesion on 07/05/2019 2. CAD with hx of CABG x4 in 2012 and BMS in 2013 - asymptomatic; on Coreg 25mg which will be changed to BID and stop Metoprolol IV push; will resume ASA and Statin when the pt is more stable 3. Chronic Systolic HF - Echo result is pending; asymptomatic; on BBlocker, but no ANDRAE/ARB due to hx of CKD 4. HTN - stable 5. GENO on CKD stage 3 - unchanged 6. Anemia 7. KIMBERLY 8. HLD 9. COPD 10. Obese MAR reviewed
[2019-07-06] MEDS: Enoxaparin Sodium 30 MG/0.3 ML SYRINGE SC SCH (19:44)
[2019-07-06] MEDS ORDERED: Carvedilol 25 MG TAB PER TUBE SCH (19:45)
[2019-07-06] MEDS: Morphine Sulfate 100 MG in Dextrose 5% in Water 98 ML IV SCH (23:08)
[2019-07-07] MEDS: Sodium Chloride 0.9% 1,000 ML IV SCH ×3 (04:37→08:50)
[2019-07-07] MEDS ORDERED: Labetalol HCl 100 MG/20 ML VIAL SLOW IVP PRN (05:27)
[2019-07-07] MEDS ORDERED: Labetalol 5 MG/ML SYRINGE (IV ROOM) SLOW IVP SCH (06:30)
[2019-07-07] MEDS: Carvedilol 25 MG TAB PER TUBE SCH ×2 (07:55→18:07)
[2019-07-07] MEDS: Docusate Sodium 100 MG/10 ML UDCUP PO SCH (07:56)
[2019-07-07] MEDS: Pantoprazole 40 MG VIAL IVP SCH (07:56)
--- NOTE | 2019-07-07 12:00 | PRG ---
DATE OF SERVICE: 07/07/2019 SUBJECTIVE: This is a 63-year-old gentleman being seen for acute kidney injury. The patient denies any nausea, vomiting, or chest pain. OBJECTIVE: CONSTITUTIONAL: The patient is awake and alert. VITAL SIGNS: Pulse 82, breathing 16, blood pressure 160/76. GENERAL APPEARANCE AND MENTAL STATUS: Fair. HEAD/NECK: Normocephalic. Atraumatic. EYES: EOMI. No deformity. EARS: Clear. No ulcers. NOSE: Intact. No lesions. MOUTH: Clear. No discharge. THROAT: Clear. No exudate. LUNGS: Clear. No crackles. CARDIAC: S1, S2. No rub. ABDOMEN: Benign. Bowel sounds positive. GENITALIA/RECTUM: Masters absent. BACK/EXTREMITIES: Edema 0+. NEUROLOGICAL: Alert and motor intact. SKIN: LYMPHATICS: LABORATORY DATA: Hemoglobin 8.3. Today's creatinine is pending. ASSESSMENT: 1. Acute kidney injury with chronic kidney disease, improving. We will recheck labs today. 2. Hypertension. Would recommend increasing the carvedilol to 37.5 mg q.12 to the current regimen and add amlodipine 2.5 mg daily. 3. Anemia, stable. 4. Medication based on GFR appropriate. Job ID: [id number]
[2019-07-07 12:37] LABS: Anion Gap 16 mmol/L (10-20); BUN (Urea Nitrogen) 36 mg/dL (8.4-25.7); Calc. Creatinine Clearance 61 mL/min (70-130); Calcium 8.8 mg/dL (7.8-10.44); Carbon Dioxide 16 mmol/L (23-31); Chloride 118 mmol/L (98-107); Estimated GFR-MDRD 31; Glucose 98 mg/dL (80-115); Potassium 4.3 mmol/L (3.5-5.1); Sodium 146 mmol/L (136-145)
[2019-07-07] MEDS ORDERED: Acetaminophen 1,000 MG in Premix Bag 1 BAG IVPB PRN (17:55)
[2019-07-07] MEDS: Acetaminophen 1,000 MG in Premix Bag 1 BAG IVPB SCH ×2 (18:07→23:56)
--- NOTE | 2019-07-07 18:20 | PDOC.CPN ---
- Subjective Date: 07/07/19 Time: 18:20 Interval history: The pt seen and examined. No overnight events. No cardiac complaints. Per the pt, he walked 2-3 times today. - Objective Allergies/Adverse Reactions: Allergies Allergy/AdvReac Type Severity Reaction Status Date / Time No Known Allergies Allergy Verified 05/26/15 12:07 Visit Medications: Current Medications Albuterol/Ipratropium (Duoneb) 3 ml NEB [id number] [facility] [place] Last Admin: 07/07/19 12:42 Dose: 3 ml Amlodipine Besylate (Norvasc) 5 mg PO BID [facility] Carvedilol (Coreg) 25 mg PER TUBE BID-WM [facility] [place] Last Admin: 07/07/19 18:07 Dose: 25 mg Enoxaparin Sodium (Lovenox) 30 mg SC 2100 [facility] [place] Last Admin: 07/06/19 19:44 Dose: 30 mg Morphine Sulfate 100 mg/ (Dextrose/Water) 100 mls @ 0 mls/hr IV INF [facility] [place] Last Admin: 07/06/19 23:08 Dose: 100 mls Sodium Chloride (1/2 Normal Saline) 1,000 mls @ 125 mls/hr IV .Q8H [facility] Acetaminophen 1,000 mg/ Device 100 mls @ 400 mls/hr IVPB Q6HR [facility] Stop: 07/08/19 12:14 Last Admin: 07/07/19 18:07 Dose: 100 mls Labetalol HCl (Normodyne) 10 mg SLOW IVP Q4H PRN PRN Reason: Systolic BP > 180 Last Admin: 07/07/19 06:19 Dose: 10 mg Morphine Sulfate (Morphine) 4 mg SLOW IVP Q2H PRN PRN Reason: Pain Last Admin: 07/04/19 12:33 Dose: 4 mg Pantoprazole Sodium (Protonix) 40 mg IVP DAILY [facility] [place] Last Admin: 07/07/19 07:56 Dose: 40 mg Sodium Chloride (Flush - Normal Saline) 10 ml IVF Q12HR [facility] Last Admin: 07/07/19 09:54 Dose: Not Given Sodium Chloride (Flush - Normal Saline) 10 ml IVF PRN PRN PRN Reason: Saline Flush Vital Signs & Weight: Vital Signs Temp Pulse Resp BP BP Pulse Ox 07/07/19 12:42 74 16 07/07/19 08:00 95 07/07/19 07:59 98.7 F 82 16 181/81 H 95 07/07/19 07:14 97 07/07/19 07:13 92 16 07/07/19 06:19 84 183/78 H Admit Weight 267 lb Weight 267 lb 10.259 oz - Physical Exam General: alert & oriented x3 HEENT: mucus membranes moist Neck: supple neck Cardiac: regular rate and rhythm Lungs: clear to auscultation, wheezes Abdomen: tender Skin: clear - Labs Result Diagrams: 07/06/19 05:10 07/07/19 12:02 Troponin/CKMB Troponin I Less than 0.010 ng/mL (< 0.028) 07/03/19 17:50 - Assessment/Plan Assessment/Plan: 1. SBO with s/p Ex Lap hand-assisted lysis of adhesion on 07/05/2019 2. CAD with hx of CABG x4 in 2012 and BMS stent placement in 2013 - asymptomatic ; on Coreg 25mg which will be changed to BID and stop Metoprolol IV push; will resume ASA and Statin when the pt is more stable 3. Chronic Systolic HF - Echo result is pending; asymptomatic; on BBlocker, but no ANDRAE/ARB due to hx of CKD 4. HTN - will resume Norvasc from tonight; hold Lisinopril for now due to elevated Cr level 5. GENO on CKD stage 3 - unchanged 6. Anemia 7. KIMBERLY 8. HLD 9. COPD 10. Obese MAR reviewed Pt. seen and eval. by me. I agree with the A/P by the REPRODUCER. Chest clear. RRR. cardiac status overall is stable.
--- NOTE | 2019-07-07 18:41 | PRG ---
DATE OF SERVICE: 07/07/2019 SUBJECTIVE: José Luis Burton is a 63-year-old male patient followed by Dr. Gee. Mr. Burton is consuming voluminous sips and chips. Nurses have tried to regulate him. NG tube output is recorded over 7 L for 24 hours. Urine output is good. He has been able to urinate on his own after Amsters removal. White count yesterday 1.6, hemoglobin 8.3. Sodium 146 today, potassium 4.3, chloride 118, BUN and creatinine 36 and 2.18. OBJECTIVE: LUNGS: Clear to auscultation. CARDIAC: Regular rate rhythm. No murmur or gallop. ABDOMEN: Soft. Occasional bowel sounds. He reports a scant bowel movement. He is slightly distended and tympanitic. Bowel sounds are diminished. EXTREMITIES: Unremarkable. ASSESSMENT/PLAN: Status post extensive adhesiolysis, now with ileus. He is consuming copious liquids. At this time, I have asked him to cut down on his oral consumption. He is hypernatremic, and we will change his IV fluids. I will obtain abdominal x-rays in the morning. Await better GI function and resolution of his tympany and check GI studies tomorrow. Job ID: [id number]
[2019-07-07] MEDS: Sodium Chloride 0.45% 1,000 ML IV SCH (21:04)
[2019-07-07] MEDS: Enoxaparin Sodium 30 MG/0.3 ML SYRINGE SC SCH (21:04)
[2019-07-07] MEDS: Amlodipine 5 MG TAB PO SCH (21:06)
[2019-07-08] MEDS: Morphine Sulfate 100 MG in Dextrose 5% in Water 98 ML IV SCH (00:12)
[2019-07-08] MEDS: Sodium Chloride 0.45% 1,000 ML IV SCH ×4 (03:41→23:50)
[2019-07-08] MEDS: Acetaminophen 1,000 MG in Premix Bag 1 BAG IVPB SCH (06:01)
[2019-07-08 06:31] LABS: #Eosinphils 0.2 thou/uL (0.0-0.7); #Lymphocytes 0.6 thou/uL (1.20-3.40); #Monocytes 0.5 thou/uL (0.11-0.59); #Neutrophils 2.3 thou/uL (1.40-6.50); %Eosinophils 5.1 % (0.0-10.0); %Lymphocytes 16.4 % (21.0-51.0); %Monocytes 14.2 % (0.0-10.0); %Neutrophils 64.3 % (42.0-75.0); Hemoglobin 8.6 g/dL (14.0-18.0); Mean Corpuscular HGB CONC 31.1 g/dL (32.0-36.0); Mean Corpuscular Hemoglobin 29.7 pg (27.0-31.0); Mean Corpuscular Volume 95.5 fL (78.0-98.0); Mean Platelet Volume 8.2 fL (7.4-10.4); Platelet Count 127 thou/uL (130-400); RBC Distribution Width 12.4 % (11.5-14.5); Red Blood Cell (RBC) Count 2.89 mill/uL (4.70-6.10); White Blood Cell (WBC) Count 3.6 thou/uL (4.8-10.8)
[2019-07-08 06:48] LABS: Anion Gap 16 mmol/L (10-20); BUN (Urea Nitrogen) 36 mg/dL (8.4-25.7); Calc. Creatinine Clearance 62 mL/min (70-130); Carbon Dioxide 16 mmol/L (23-31); Chloride 116 mmol/L (98-107); Estimated GFR-MDRD 31; Glucose 88 mg/dL (80-115); Potassium 4.2 mmol/L (3.5-5.1); Sodium 144 mmol/L (136-145)
[2019-07-08] MEDS: Carvedilol 25 MG TAB PER TUBE SCH ×2 (08:18→16:59)
[2019-07-08] MEDS: Amlodipine 5 MG TAB PO SCH ×2 (08:19→20:33)
[2019-07-08] MEDS: Pantoprazole 40 MG VIAL IVP SCH (08:31)
[2019-07-08] MEDS: hydrALAZINE 25 MG TAB PO SCH ×3 (09:59→20:34)
[2019-07-08] MEDS ORDERED: Acetaminophen 1,000 MG in Premix Bag 1 BAG IVPB PRN (11:06)
--- NOTE | 2019-07-08 11:40 | PRG ---
DATE OF SERVICE: 07/08/2019 SUBJECTIVE: José Luis Burton is doing fairly well today. He had 7 L NG tube output the day before yesterday and yesterday, he had just over 3 L when he made efforts to decrease his consumption of liquids. He reports 2 small bowel movements. He is voiding on his own. This morning, his white count is 3.6, hemoglobin 8.6. Basic metabolic profile is normal except for his chronic kidney disease. BUN 36 and creatinine 2.16. OBJECTIVE: LUNGS: Clear to auscultation. CARDIAC: Regular rate and rhythm. No murmur or gallop. ABDOMEN: Soft, mild tympany. Mild distention. Wounds look good. Diminished bowel sounds. Abdominal x-rays obtained this morning. Radiological reading is pending. He does have good placement of NG tube. He has multiple air-fluid levels with distention of small-bowel loops with some gas in his right colon and rectum. ASSESSMENT AND PLAN: Postoperative ileus as expected. We would continue NG tube to suction. Await better GI function. Await resolution of tympany. He is not using his HAIR WORKER much and his hand-assisted laparoscopic approach should result in less pain and hopefully can avoid or minimize narcotic use. I have discussed with Anesthesia, and we will stop his HAIR WORKER pump. His sodium is better once his IV fluids have been adjusted. Job ID: [id number]
--- NOTE | 2019-07-08 13:33 | RAD ---
ABDOMEN TWO VIEWS: CHEST ONE VIEW: HISTORY: Postop ileus. COMPARISON: 05/03/2019 FINDINGS: NG tube in place. Left sided central line and right sided injection port in place. Minimal slightly o blique parenchymal changes in the right lower lobe, evidence for subsegmental atelectasis. These righ t lower lobe parenchymal changes are new from the prior 07/04/2019 study. Persistent abnormally dilated small bowel loops with air-fluid levels. Gas and fecal material noted i n the colon. Little change from prior exam, 07/03/2019. IMPRESSION: 1. Persistent abnormally dilated small bowel loops with air and fluid levels with fecal material thro ughout the colon. Developing parenchymal changes in the right lower lobe, evidence for subsegmental a telectasis. 2. Continued short term followup. POS: TPC
--- NOTE | 2019-07-08 17:44 | PRG ---
DATE OF SERVICE: 07/08/2019 SUBJECTIVE: Patient was seen and examined at bedside and overnight events noted. Patient denies any shortness of breath or chest pain or palpitation. No history of nausea or vomiting or diarrhea or fever or chills or cramps. OBJECTIVE: GENERAL: This is a well-built male in no apparent distress. VITAL SIGNS: Temperature 98.7. Heart rate 76. Respiratory rate 18. Blood pressure 181/81. HEENT: Atraumatic, normocephalic. Oral mucosa is moist NECK: Supple. CARDIOVASCULAR: S1, S2 heard. Rate and rhythm regular. RESPIRATORY: Clear to auscultation. GASTROINTESTINAL: Abdomen is soft. MUSCULOSKELETAL: No tenderness. No edema. DERMATOLOGIC: No skin rash. NEUROLOGIC: Alert and awake and oriented X3. No focal neurologic deficits. Moving all the extremities. PSYCHIATRIC: Mood and affect normal. LABORATORY DATA: Potassium is 4.2, bicarb 16, BUN is 36, and creatinine is 2.1. ASSESSMENT AND PLAN: 1. Acute kidney injury on chronic kidney stage 3 with stable creatinine. 2. Edema, controlled. 3. Hypertension. 4. Acidosis. 5. Anemia. 6. Renal function is stable. Continue hydration as tolerated. Job ID: [id number]
[2019-07-08] MEDS: Enoxaparin Sodium 30 MG/0.3 ML SYRINGE SC SCH (20:34)
[2019-07-09] MEDS: Pantoprazole 40 MG VIAL IVP SCH (09:23)
[2019-07-09] MEDS: Carvedilol 25 MG TAB PER TUBE SCH ×2 (09:23→17:04)
[2019-07-09] MEDS: Amlodipine 5 MG TAB PO SCH ×2 (09:23→21:02)
[2019-07-09] MEDS: hydrALAZINE 25 MG TAB PO SCH ×3 (09:23→21:01)
[2019-07-09] MEDS: Sodium Chloride 0.45% 1,000 ML IV SCH (09:24)
--- NOTE | 2019-07-09 10:18 | EKG ---
Test Reason : Blood Pressure : / mmHG Vent. Rate : 089 BPM Atrial Rate : 089 BPM P-R Int : 140 ms QRS Dur : 086 ms QT Int : 362 ms P-R-T Axes : 013 053 072 degrees QTc Int : 440 ms Normal sinus rhythm Nonspecific ST and T wave abnormality Abnormal ECG When compared with ECG of 03-JUL-2019 18:25, (Unconfirmed) No significant change was found Confirmed by DANIEL ADEN, MARY JO ([id number]) on 07/09/2019 10:18:13 AM Referred By: LYN Confirmed By:MARY JO SANCHEZ MD
[2019-07-09 10:43] LABS: Anion Gap 21 mmol/L (10-20); BUN (Urea Nitrogen) 32 mg/dL (8.4-25.7); Calc. Creatinine Clearance 64 mL/min (70-130); Calcium 8.8 mg/dL (7.8-10.44); Chloride 117 mmol/L (98-107); Estimated GFR-MDRD 33; Glucose 74 mg/dL (80-115); Potassium 4.3 mmol/L (3.5-5.1); Sodium 143 mmol/L (136-145)
--- NOTE | 2019-07-09 10:47 | PRG ---
DATE OF SERVICE: 07/09/2019 SUBJECTIVE: Patient was seen and examined at bedside and overnight events noted. Patient denies any shortness of breath or chest pain or palpitation. No history of nausea or vomiting or diarrhea or fever or chills or cramps. OBJECTIVE: GENERAL: This is an obese male, in mild distress. VITAL SIGNS: Temperature 98.6. Heart rate 74. Respiratory rate 16. Blood pressure 173/78. HEENT: Atraumatic, normocephalic. Oral mucosa is moist NECK: Supple. CARDIOVASCULAR: S1, S2 heard. Rate and rhythm regular. RESPIRATORY: Clear to auscultation. GASTROINTESTINAL: Abdomen is soft. MUSCULOSKELETAL: No tenderness. No edema. DERMATOLOGIC: No skin rash. NEUROLOGIC: Alert and awake and oriented X3. No focal neurologic deficits. Moving all the extremities. PSYCHIATRIC: Mood and affect normal. LABORATORY DATA: Labs pending. ASSESSMENT AND PLAN: 1. Acute kidney injury on chronic kidney stage 3. Labs are pending from today. 2. Edema, controlled. 3. History of hypertension. 4. Acidosis. 5. Anemia. The patient reports mild shortness of breath on exertion today. We will recommend reducing IV fluids to 75 mL/h if he can tolerate from surgical standpoint. I will defer that to primary team. We will continue to follow. Check labs ordered for today. Job ID: [id number]
[2019-07-09 10:49] LABS: Carbon Dioxide 9 mmol/L (23-31)
[2019-07-09] MEDS ORDERED: Sodium Bicarbonate 150 MEQ in Dextrose 5% in Water 1,000 ML IV SCH (11:30)
[2019-07-09 12:57] LABS: Lactic Acid 0.7 mmol/L (0.5-2.2)
[2019-07-09 13:01] LABS: Anion Gap 17 mmol/L (10-20); BUN (Urea Nitrogen) 33 mg/dL (8.4-25.7); Calc. Creatinine Clearance 66 mL/min (70-130); Calcium 8.7 mg/dL (7.8-10.44); Carbon Dioxide 16 mmol/L (23-31); Chloride 113 mmol/L (98-107); Estimated GFR-MDRD 34; Glucose 78 mg/dL (80-115); Potassium 3.9 mmol/L (3.5-5.1); Sodium 142 mmol/L (136-145)
[2019-07-09 14:54] LABS: Bilirubin Negative (Negative); Blood, Urine Negative (Negative); Glucose, Urine (Dipstick) Negative (Negative); Leukocyte Negative (Negative); Nitrite Negative (Negative); Protein, Urine (Dipstick) 30 mg/dL (Neg-Trace); Urobilinogen 0.2 mg/dL (Less than 2)
[2019-07-09 14:55] LABS: Clarity Clear (Clear)
[2019-07-09] MEDS ORDERED: Chloraseptic Spray 180 ml Bottle PO PRN (16:24)
--- NOTE | 2019-07-09 16:36 | PDOC.GSPN ---
Surgery Progress Note: Subj - Subjective Narrative: Patient feels tired today but is not having any abdominal pain or nausea. He has had a couple of small bowel movements but isn't really passing much gas yet. Vital signs are okay except for his blood pressure is up. NG output is still pretty high although this is clearing in color. Urine output is good. BUN and creatinine are stable. Bicarbonate was low and his aircraft engine cylinder mechanic is started him on some IV bicarbonate. Abdomen is still distended although no longer tender and he states that it is softer than it has been. Still tympanitic with diminished bowel sounds. Assessment/plan: Status post extensive lysis of adhesions for innumerable intra- abdominal adhesions causing acute on chronic bowel obstruction. He has been almost a week with no oral malnutrition so I am going to start him on TPN. He was encouraged to continue to ambulate and work on his incentive spirometry. I' ll recheck another abdominal film tomorrow. Surgery Progress Note: Obj - Vital signs Vital signs: Vital Signs - Most Recent Temp Pulse Resp BP Pulse Ox 98.1 F 74 16 172/82 H 97 07/09/19 15:24 07/09/19 15:24 07/09/19 15:24 07/09/19 15:24 07/09/19 15:24 Surgery Progress Note: Results - Labs Result Diagrams: 07/08/19 06:15 07/09/19 12:31 Lab results: Laboratory Results - last 24 hr 07/09/19 07/09/19 07/09/19 10:13 12:31 12:31 Sodium 143 142 Potassium 4.3 3.9 Chloride 117 H 113 H Carbon Dioxide 9 L* 16 L Anion Gap 21 H 17 BUN 32 H 33 H Creatinine 2.07 H 2.01 H Estimated GFR (MDRD) 33 34 Glucose 74 L 78 L Lactic Acid 0.7 Calcium 8.8 8.7 Urine Color Urine Clarity Urine pH Ur Specific [place] Urine Protein Urine Glucose (UA) Urine Ketones Urine Blood Urine Nitrite Urine Bilirubin Urine Urobilinogen Ur Leukocyte Esterase 07/09/19 14:20 Sodium Potassium Chloride Carbon Dioxide Anion Gap BUN Creatinine Estimated GFR (MDRD) Glucose Lactic Acid Calcium Urine Color Yellow Urine Clarity Clear Urine pH 5.0 Ur Specific [place] 1.010 Urine Protein 30 A Urine Glucose (UA) Negative Urine Ketones 15 A Urine Blood Negative Urine Nitrite Negative Urine Bilirubin Negative Urine Urobilinogen 0.2 Ur Leukocyte Esterase Negative
[2019-07-09 18:01] LABS: INR-International Normal Ratio 1.2; PTT 37.6 SEC (22.9-36.1); Prothrombin Time 14.7 SEC (12.0-14.7)
[2019-07-09 18:15] LABS: ALT (SGPT) 15 U/L (8-55); AST (SGOT) 20 U/L (5-34); Albumin 3.1 g/dL (3.4-4.8); Alkaline Phosphatase 57 U/L (40-110); Anion Gap 17 mmol/L (10-20); BUN (Urea Nitrogen) 32 mg/dL (8.4-25.7); Bilirubin, Total 0.5 mg/dL (0.2-1.2); Calc. Creatinine Clearance 68 mL/min (70-130); Calcium 8.5 mg/dL (7.8-10.44); Carbon Dioxide 16 mmol/L (23-31); Cardiac Risk 4.2 (Less than 4.5); Chloride 112 mmol/L (98-107); Cholesterol 84 mg/dl (< 200 Desired); Estimated GFR-MDRD 35; Globulin 2.4 g/dL (2.4-3.5); Glucose 92 mg/dL (80-115); HDL Cholesterol 20 mg/dL (>60 Neg Risk); LDL Cholesterol, Calculated 36 mg/dL; Magnesium 1.6 mg/dL (1.6-2.6); Phosphorus 2.9 mg/dL (2.3-4.7); Potassium 3.3 mmol/L (3.5-5.1); Protein, Total 5.5 g/dL (5.8-8.1); Sodium 142 mmol/L (136-145); Triglycerides 142 mg/dL (Less than 150)
[2019-07-09 18:28] LABS: Band 43 % (5-11); Eosinophils 4 % (0-10); Hemoglobin 8.3 g/dL (14.0-18.0); Lymphocytes 11 % (21-51); MDiff Complete? YES; Mean Corpuscular HGB CONC 33.1 g/dL (32.0-36.0); Mean Corpuscular Hemoglobin 30.6 pg (27.0-31.0); Mean Corpuscular Volume 92.5 fL (78.0-98.0); Mean Platelet Volume 7.6 fL (7.4-10.4); Metamyelocyte 3 % (0-0); Monocytes 7 % (0-10); Myelocyte 3 % (0-0); Neutrophil 29 % (42-75); Ovalocytes SLIGHT = 2-5 cells (100X) (0-1/hpf); Platelet Count 132 thou/uL (130-400); Platelet Morphology Comment Appears Adequate; Polychromasia SLIGHT = 2-3 cells (100X) (0-2/hpf); RBC Distribution Width 12.3 % (11.5-14.5); Tear Drops SLIGHT = 2-5 cells (100X) (0-1/hpf); White Blood Cell (WBC) Count 5.9 thou/uL (4.8-10.8)
[2019-07-09] MEDS: Enoxaparin Sodium 30 MG/0.3 ML SYRINGE SC SCH (21:01)
[2019-07-09] MEDS ORDERED: Fat Emulsion 250 ML in D15W-AA 5% with Lytes 2,000 ML IV SCH (22:00)
[2019-07-09] MEDS ORDERED: Fat Emulsion 250 ML, Multivitamins, Adult 10 ML, Multitrace-5 5 ML in D15W-AA 5% with L... IV SCH (22:01)
[2019-07-09] MEDS: Fat Emulsion 250 ML, Multivitamins, Adult 10 ML, Multitrace-5 5 ML in D15W-AA 5% with L... IV SCH (22:51)
[2019-07-10 06:36] LABS: ALT (SGPT) 13 U/L (8-55); AST (SGOT) 19 U/L (5-34); Albumin 2.9 g/dL (3.4-4.8); Alkaline Phosphatase 53 U/L (40-110); Anion Gap 12 mmol/L (10-20); BUN (Urea Nitrogen) 28 mg/dL (8.4-25.7); Bilirubin, Total 0.4 mg/dL (0.2-1.2); Calc. Creatinine Clearance 72 mL/min (70-130); Carbon Dioxide 22 mmol/L (23-31); Chloride 110 mmol/L (98-107); Estimated GFR-MDRD 37; Globulin 2.2 g/dL (2.4-3.5); Glucose 122 mg/dL (80-115); Magnesium 1.6 mg/dL (1.6-2.6); Phosphorus 3.4 mg/dL (2.3-4.7); Potassium 3.2 mmol/L (3.5-5.1); Protein, Total 5.1 g/dL (5.8-8.1); Sodium 141 mmol/L (136-145)
[2019-07-10 06:48] LABS: Hemoglobin 8.9 g/dL (14.0-18.0); Mean Corpuscular HGB CONC 33.6 g/dL (32.0-36.0); Mean Corpuscular Hemoglobin 30.9 pg (27.0-31.0); Mean Platelet Volume 7.8 fL (7.4-10.4); Platelet Count 163 thou/uL (130-400); RBC Distribution Width 12.4 % (11.5-14.5); Red Blood Cell (RBC) Count 2.88 mill/uL (4.70-6.10); White Blood Cell (WBC) Count 8.3 thou/uL (4.8-10.8)
[2019-07-10 06:49] LABS: Band 14 % (5-11); Eosinophils 3 % (0-10); Lymphocytes 12 % (21-51); MDiff Complete? YES; Metamyelocyte 2 % (0-0); Monocytes 7 % (0-10); Myelocyte 1 % (0-0); Neutrophil 61 % (42-75)
[2019-07-10] MEDS: hydrALAZINE 25 MG TAB PO SCH ×3 (08:28→21:39)
[2019-07-10] MEDS: Amlodipine 5 MG TAB PO SCH ×2 (08:29→21:40)
[2019-07-10] MEDS: Pantoprazole 40 MG VIAL IVP SCH (08:29)
[2019-07-10] MEDS: Carvedilol 25 MG TAB PER TUBE SCH ×2 (08:29→18:06)
[2019-07-10] MEDS ORDERED: Non-Formulary Item 1 EACH (Amlodipine Besylate/Benazepril [Lotrel 10-40 Mg Capsule] 1 EAC PO SCH (09:00)
[2019-07-10] MEDS ORDERED: Magnesium 2 GM/50 ML 2 GM in Premix Bag 1 BAG IVPB SCH (10:00)
[2019-07-10] MEDS ORDERED: Potassium Chloride 40 MEQ in Sodium Chloride 0.9% 250 ML 250 ML IVPB SCH (10:00)
--- NOTE | 2019-07-10 10:39 | RAD ---
ABDOMEN TWO VIEWS: HISTORY: Postop ileus. Small bowel obstruction. FINDINGS: Persistent abnormally dilated small bowel with air-fluid levels. Very little colonic gas and ma terial noted scattered throughout the colon. No free intraperitoneal air. IMPRESSION: Persistently abnormally dilated small bowel loops with air and fluid levels. POS: [facility]
[2019-07-10] MEDS: FLUoxetine HCl 20 MG CAP PO SCH (10:53)
[2019-07-10] MEDS: Amlodipine 5 mg/Benazepril 10 mg CAP PO SCH (10:53)
[2019-07-10] MEDS: Aspirin 81 mg Enteric Coated Tablet PO SCH (10:54)
--- NOTE | 2019-07-10 11:29 | PRG ---
DATE OF SERVICE: 07/10/2019 SUBJECTIVE: Patient was seen and examined at bedside and overnight events noted. Patient denies any shortness of breath or chest pain or palpitation. No history of nausea or vomiting or diarrhea or fever or chills or cramps. OBJECTIVE: GENERAL: This is a well-built male, in no apparent distress. VITAL SIGNS: Temperature 97. Heart rate 70. Respiratory rate 18. Blood pressure 153/83. HEENT: Atraumatic, normocephalic. Oral mucosa is moist NECK: Supple. CARDIOVASCULAR: S1, S2 heard. Rate and rhythm regular. RESPIRATORY: Clear to auscultation. GASTROINTESTINAL: Abdomen is soft. MUSCULOSKELETAL: No tenderness. No edema. DERMATOLOGIC: No skin rash. NEUROLOGIC: Alert and awake and oriented X3. No focal neurologic deficits. Moving all the extremities. PSYCHIATRIC: Mood and affect normal. LABORATORY DATA: Potassium is 3.2, BUN is 28, creatinine is 1.8. ASSESSMENT AND PLAN: 1. Acute kidney injury on chronic kidney disease stage 3, much better after IV fluids. 2. Hypokalemia. Replace and also pharmacy to adjust potassium and other electrolytes through the total parenteral nutrition. 3. Hypoalbuminemia. 4. History of hypertension. 5. Anemia. 6. Acidosis is better. We will continue close monitoring and replace electrolytes. We will follow. We will give a potassium dose today. Job ID: [id number]
--- NOTE | 2019-07-10 18:18 | PDOC.GSPN ---
Surgery Progress Note: Subj - Subjective Narrative: Patient is feeling better today. He has had more bowel movements and is passing "a lot more gas". No nausea or vomiting. His abdomen is "sore". Small bowel loops to look very dilated on x-ray this morning with air-fluid levels. There is gas in the right colon however and less stool in the colon overall. Vital signs are okay and labs are stable. Electrolytes are normal and bicarbonate was improved. Abdomen is still quite distended and tympanitic but softer and with slightly better bowel sounds. Assessment/plan: Expected postoperative ileus appears to be slowly resolving. He is still fairly tympanitic and distended so I am going to leave the NG tube for tonight. We'll recheck abdominal films in the morning. We may try clamping the NG tube and checking residuals tomorrow. Surgery Progress Note: Obj - Vital signs Vital signs: Vital Signs - Most Recent Temp Pulse Resp BP Pulse Ox 99.3 F 73 20 160/87 H 97 07/10/19 15:31 07/10/19 15:31 07/10/19 15:31 07/10/19 15:31 07/10/19 15:31 Surgery Progress Note: Results - Labs Result Diagrams: 07/10/19 05:45 07/10/19 05:45 Lab results: Laboratory Results - last 24 hr 07/10/19 07/10/19 05:45 05:45 WBC 8.3 RBC 2.88 L Hgb 8.9 L Hct 26.5 L MCV 92.0 MCH 30.9 MCHC 33.6 RDW 12.4 Plt Count 163 MPV 7.8 Neutrophils % (Manual) 61 Band Neuts % (Manual) 14 H Lymphocytes % (Manual) 12 L Monocytes % (Manual) 7 Eosinophils % (Manual) 3 Metamyelocytes % (Man) 2 H Myelocytes % 1 H Sodium 141 Potassium 3.2 L Chloride 110 H Carbon Dioxide 22 L Anion Gap 12 BUN 28 H Creatinine 1.86 H Estimated GFR (MDRD) 37 Glucose 122 H Calcium 8.0 Phosphorus 3.4 Magnesium 1.6 Total Bilirubin 0.4 AST 19 ALT 13 Alkaline Phosphatase 53 Serum Total Protein 5.1 L Albumin 2.9 L Globulin 2.2 L Albumin/Globulin Ratio 1.3
[2019-07-10] MEDS: Enoxaparin Sodium 30 MG/0.3 ML SYRINGE SC SCH (21:39)
[2019-07-10] MEDS: Atorvastatin Calcium 40 MG TAB PO SCH (21:40)
[2019-07-10] MEDS: SODIUM CHLORIDE IV SCH (22:49)
[2019-07-10] MEDS: POTASSIUM ACETATE IV SCH (22:49)
[2019-07-10] MEDS: [UNRECOGNIZED DRUG - OTHER] IV SCH (22:49)
[2019-07-10] MEDS: FAT EMULSION IV SCH (22:49)
[2019-07-10] MEDS: Fat Emulsion 250 ML, Multivitamins, Adult 10 ML, Multitrace-5 5 ML in D15W-AA 5% with L... IV SCH (23:00)
[2019-07-10] MEDS: Morphine 4 MG/ML VIAL SLOW IVP PRN (23:03)
[2019-07-11 06:46] LABS: Hemoglobin 8.5 g/dL (14.0-18.0); Mean Corpuscular HGB CONC 31.1 g/dL (32.0-36.0); Mean Corpuscular Hemoglobin 28.8 pg (27.0-31.0); Mean Corpuscular Volume 92.7 fL (78.0-98.0); Mean Platelet Volume 8.1 fL (7.4-10.4); Phosphorus 3.5 mg/dL (2.3-4.7); Platelet Count 178 thou/uL (130-400); RBC Distribution Width 12.6 % (11.5-14.5); Red Blood Cell (RBC) Count 2.96 mill/uL (4.70-6.10); White Blood Cell (WBC) Count 9.8 thou/uL (4.8-10.8)
[2019-07-11 06:49] LABS: ALT (SGPT) 15 U/L (8-55); AST (SGOT) 20 U/L (5-34); Albumin 2.9 g/dL (3.4-4.8); Alkaline Phosphatase 51 U/L (40-110); Anion Gap 11 mmol/L (10-20); BUN (Urea Nitrogen) 30 mg/dL (8.4-25.7); Bilirubin, Total 0.3 mg/dL (0.2-1.2); Calc. Creatinine Clearance 74 mL/min (70-130); Calcium 8.2 mg/dL (7.8-10.44); Carbon Dioxide 23 mmol/L (23-31); Chloride 111 mmol/L (98-107); Estimated GFR-MDRD 38; Globulin 2.4 g/dL (2.4-3.5); Glucose 118 mg/dL (80-115); Magnesium 1.8 mg/dL (1.6-2.6); Potassium 3.3 mmol/L (3.5-5.1); Protein, Total 5.3 g/dL (5.8-8.1); Sodium 142 mmol/L (136-145)
[2019-07-11 07:47] LABS: Band 19 % (5-11); Eosinophils 5 % (0-10); Lymphocytes 11 % (21-51); MDiff Complete? YES; Metamyelocyte 4 % (0-0); Monocytes 10 % (0-10); Myelocyte 3 % (0-0); Neutrophil 48 % (42-75); Platelet Morphology Comment Appears Adequate; Polychromasia SLIGHT = 2-3 cells (100X) (0-2/hpf)
[2019-07-11] MEDS: Carvedilol 25 MG TAB PER TUBE SCH ×2 (08:18→17:59)
[2019-07-11] MEDS: Amlodipine 5 mg/Benazepril 10 mg CAP PO SCH (08:18)
[2019-07-11] MEDS: FLUoxetine HCl 20 MG CAP PO SCH (08:18)
[2019-07-11] MEDS: Aspirin 81 mg Enteric Coated Tablet PO SCH (08:18)
[2019-07-11] MEDS: Amlodipine 5 MG TAB PO SCH ×2 (08:18→20:31)
[2019-07-11] MEDS: hydrALAZINE 25 MG TAB PO SCH ×3 (08:19→20:30)
[2019-07-11] MEDS: Pantoprazole 40 MG VIAL IVP SCH (08:23)
[2019-07-11] MEDS ORDERED: EPOETIN ALFA-EPBX (ESRD) 10,000 UNIT/ML VIAL SC SCH (10:45)
--- NOTE | 2019-07-11 10:57 | RAD ---
XR Abdomen 2 View History: Small bowel obstruction Comparison: Radiograph prior day Findings: Enteric tube side port just below the GE junction. Numerous air-filled loops of small bowel throughout the abdomen with air-fluid levels. No free air under the hemidiaphragms. Impression: Continued small bowel obstruction/ileus. Small bowel follow-through may be beneficial.
--- NOTE | 2019-07-11 10:59 | PRG ---
DATE OF SERVICE: 07/11/2019 SUBJECTIVE: Patient was seen and examined at bedside and overnight events noted. Patient denies any shortness of breath or chest pain or palpitation. No history of nausea or vomiting or diarrhea or fever or chills or cramps. OBJECTIVE: GENERAL: This is a well-built male, in no apparent distress. VITAL SIGNS: Temperature 98.2. Heart rate 68. Respiratory rate 18. Blood pressure 159/82. HEENT: Atraumatic, normocephalic. Oral mucosa is moist NECK: Supple. CARDIOVASCULAR: S1, S2 heard. Rate and rhythm regular. RESPIRATORY: Clear to auscultation. GASTROINTESTINAL: Abdomen is soft. MUSCULOSKELETAL: No tenderness. No edema. DERMATOLOGIC: No skin rash. NEUROLOGIC: Alert and awake and oriented X3. No focal neurologic deficits. Moving all the extremities. PSYCHIATRIC: Mood and affect normal. LABORATORY DATA: Potassium 3.3, BUN is 30, creatinine is 1.8. ASSESSMENT AND PLAN: 1. Acute kidney injury on chronic kidney stage 3. Renal function seems to be stable. His baseline creatinine is around 1.5 to 1.8, so creatinine back to baseline. 2. Hypokalemia. Check with pharmacy if they can adjust potassium. I did talk with the bedside nurse. If pharmacy cannot add potassium and monitor potassium with TPN, plan is to repeat another 40 mEq of potassium KCl IV today. 3. Hypoalbuminemia. 4. History of hypertension, anemia. 5. Acidosis. We will add Epogen for anemia and monitor electrolytes closely while he is on TPN and follow with pharmacy. We will follow. Job ID: [id number]
[2019-07-11] MEDS ORDERED: Potassium Chloride 40 MEQ in Premix Bag 1 BAG IVPB SCH (11:00)
--- NOTE | 2019-07-11 14:22 | PDOC.GSPN ---
Surgery Progress Note: Subj - Subjective Narrative: Patient states he feels better today. He denies any pain or nausea. He is passing gas. No bowel movement so far today. Abdomen is still distended and tympanitic but somewhat softer. Bowel sounds are present although still hypoactive. Incisions look good. Labs are okay except for hypokalemia, and potassium replacement has been ordered. Small bowel still looks dilated on abdominal films. NG output is about equal to oral intake. Urine output isn't quantified but BUN and creatinine are stable and at baseline. Assessment/plan: Status post lysis of adhesions for small bowel obstruction. Patient has had a prolonged ileus which is not entirely unexpected given the extensive nature of his adhesions. He does appear to be slowly improving with passage of more flatus. He was encouraged to ambulate more frequently. He walked in the halls twice yesterday but has been encouraged to walk at least 4 times a day. Going to let him take some sips of clears and some Ensure clear supplement but leave the NG tube for now. Consider reimaging with contrast if he does not progress soon. Surgery Progress Note: Obj - Vital signs Vital signs: Vital Signs - Most Recent Temp Pulse Resp BP Pulse Ox 98.4 F 68 18 133/77 99 07/11/19 11:11 07/11/19 12:46 07/11/19 12:46 07/11/19 11:11 07/11/19 11:11 Surgery Progress Note: Results - Labs Result Diagrams: 07/11/19 06:10 07/11/19 06:10 Lab results: Laboratory Results - last 24 hr 07/11/19 07/11/19 07/11/19 04:59 06:10 06:10 WBC 9.8 RBC 2.96 L Hgb 8.5 L Hct 27.5 L MCV 92.7 MCH 28.8 MCHC 31.1 L RDW 12.6 Plt Count 178 MPV 8.1 Neutrophils % (Manual) 48 Band Neuts % (Manual) 19 H Lymphocytes % (Manual) 11 L Monocytes % (Manual) 10 Eosinophils % (Manual) 5 Metamyelocytes % (Man) 4 H Myelocytes % 3 H Neutrophils # Not Reportable Lymphocytes # Not Reportable Plt Morphology Comment Appears Adequate Polychromasia SLIGHT = 2-3 cells Sodium 142 Potassium 3.3 L Chloride 111 H Carbon Dioxide 23 Anion Gap 11 BUN 30 H Creatinine 1.81 H Estimated GFR (MDRD) 38 Glucose 118 H POC Glucose 123 H Calcium 8.2 Phosphorus Magnesium 1.8 Total Bilirubin 0.3 AST 20 ALT 15 Alkaline Phosphatase 51 Serum Total Protein 5.3 L Albumin 2.9 L Globulin 2.4 Albumin/Globulin Ratio 1.2 07/11/19 06:10 WBC RBC Hgb Hct MCV MCH MCHC RDW Plt Count MPV Neutrophils % (Manual) Band Neuts % (Manual) Lymphocytes % (Manual) Monocytes % (Manual) Eosinophils % (Manual) Metamyelocytes % (Man) Myelocytes % Neutrophils # Lymphocytes # Plt Morphology Comment Polychromasia Sodium Potassium Chloride Carbon Dioxide Anion Gap BUN Creatinine Estimated GFR (MDRD) Glucose POC Glucose Calcium Phosphorus 3.5 Magnesium Total Bilirubin AST ALT Alkaline Phosphatase Serum Total Protein Albumin Globulin Albumin/Globulin Ratio
[2019-07-11] MEDS: tiZANidine HCl 4 MG TAB PER TUBE SCH (20:30)
[2019-07-11] MEDS: Atorvastatin Calcium 40 MG TAB PO SCH (20:31)
[2019-07-11] MEDS: Enoxaparin Sodium 30 MG/0.3 ML SYRINGE SC SCH (20:38)
[2019-07-11] MEDS: POTASSIUM ACETATE IV SCH ×3 (20:46→22:29)
[2019-07-11] MEDS: CALCIUM GLUCONATE IV SCH ×2 (20:46→22:04)
[2019-07-11] MEDS: [UNRECOGNIZED DRUG - OTHER] IV SCH ×2 (20:46→22:04)
[2019-07-11] MEDS: FAT EMULSION IV SCH ×3 (20:46→22:29)
[2019-07-11] MEDS: [UNRECOGNIZED DRUG - OTHER] IV SCH (22:29)
[2019-07-11] MEDS: SODIUM CHLORIDE IV SCH (22:29)
[2019-07-12 04:52] LABS: Hemoglobin 8.7 g/dL (14.0-18.0); Mean Corpuscular HGB CONC 32.8 g/dL (32.0-36.0); Mean Corpuscular Hemoglobin 30.6 pg (27.0-31.0); Mean Corpuscular Volume 93.3 fL (78.0-98.0); Mean Platelet Volume 8.1 fL (7.4-10.4); Platelet Count 171 thou/uL (130-400); RBC Distribution Width 12.6 % (11.5-14.5); Red Blood Cell (RBC) Count 2.85 mill/uL (4.70-6.10); White Blood Cell (WBC) Count 10.3 thou/uL (4.8-10.8)
[2019-07-12 04:53] LABS: Band 1 % (5-11); Eosinophils 1 % (0-10); Hypochromia SLIGHT = 6-15 cells (100X) (0-5/hpf); Lymphocytes 28 % (21-51); MDiff Complete? YES; Monocytes 3 % (0-10); Neutrophil 67 % (42-75); Nucleated RBC 1 % (0); Platelet Morphology Comment Appears Adequate
[2019-07-12 04:54] LABS: Phosphorus 3.7 mg/dL (2.3-4.7)
[2019-07-12 04:58] LABS: ALT (SGPT) 23 U/L (8-55); AST (SGOT) 28 U/L (5-34); Alkaline Phosphatase 56 U/L (40-110); Anion Gap 13 mmol/L (10-20); BUN (Urea Nitrogen) 29 mg/dL (8.4-25.7); Bilirubin, Total 0.4 mg/dL (0.2-1.2); Calc. Creatinine Clearance 71 mL/min (70-130); Calcium 8.5 mg/dL (7.8-10.44); Carbon Dioxide 22 mmol/L (23-31); Chloride 110 mmol/L (98-107); Estimated GFR-MDRD 37; Globulin 2.5 g/dL (2.4-3.5); Glucose 110 mg/dL (80-115); Magnesium 1.8 mg/dL (1.6-2.6); Potassium 3.4 mmol/L (3.5-5.1); Protein, Total 5.5 g/dL (5.8-8.1); Sodium 142 mmol/L (136-145)
[2019-07-12] MEDS: Carvedilol 25 MG TAB PER TUBE SCH ×2 (08:47→16:07)
[2019-07-12] MEDS: hydrALAZINE 25 MG TAB PO SCH ×3 (08:47→22:14)
[2019-07-12] MEDS: Aspirin 81 mg Enteric Coated Tablet PO SCH (08:48)
[2019-07-12] MEDS: Amlodipine 5 mg/Benazepril 10 mg CAP PO SCH (08:48)
[2019-07-12] MEDS: Pantoprazole 40 MG VIAL IVP SCH (08:49)
[2019-07-12] MEDS: FLUoxetine HCl 20 MG CAP PO SCH (08:49)
[2019-07-12] MEDS ORDERED: Sodium Chloride 0.45% 1,000 ML IV SCH (16:45)
[2019-07-12] MEDS: Sodium Chloride 0.45% 1,000 ML IV SCH (18:13)
--- NOTE | 2019-07-12 18:15 | PRG ---
DATE OF SERVICE: 07/12/2019 SUBJECTIVE: Patient was seen and examined at bedside and overnight events noted. Patient denies any shortness of breath or chest pain or palpitation. No history of nausea or vomiting or diarrhea or fever or chills or cramps. OBJECTIVE: GENERAL: This is a well-built male, in no apparent distress. VITAL SIGNS: Temperature 98.2. Heart rate 74. Respiratory rate 18. Blood pressure 167/81. HEENT: Atraumatic, normocephalic. Oral mucosa is moist NECK: Supple. CARDIOVASCULAR: S1, S2 heard. Rate and rhythm regular. RESPIRATORY: Clear to auscultation. GASTROINTESTINAL: Abdomen is soft. MUSCULOSKELETAL: No tenderness. No edema. DERMATOLOGIC: No skin rash. NEUROLOGIC: Alert and awake and oriented X3. No focal neurologic deficits. Moving all the extremities. PSYCHIATRIC: Mood and affect normal. LABORATORY DATA: Potassium is 3.4, BUN is 29, and creatinine is 1.8. ASSESSMENT AND PLAN: 1. Acute kidney injury on chronic kidney disease, stage 3. Avoid nephrotoxins. We will monitor. Renal function stable. 2. Hypokalemia. 3. Acidosis, stable. 4. Edema, controlled. 5. Hypoalbuminemia. 6. Anemia of chronic disease. Renal function is stable. Replace electrolytes and we will monitor labs. Job ID: [id number]
--- NOTE | 2019-07-12 18:26 | PDOC.GSPN ---
Surgery Progress Note: Subj - Subjective Narrative: Patient states that he is feeling much better. He had a large bowel movement and has been passing lots of gas. No nausea vomiting or bloating. NG output is almost clear with a light green tinge. Blood pressure is mildly elevated but other vital signs are normal. H&H and BUN and creatinine are stable. Bandemia is resolving. The electrolytes are okay except slight hypokalemia. Assessment/plan: Status post extensive lysis of adhesions for acute on chronic bowel obstruction. Expected post-op ileus is slowly improving. Will clamp NG and check residuals. Continue TPN for now. Dr Kohli is covering this weekend. Replace potassium. Surgery Progress Note: Obj - Vital signs Vital signs: Vital Signs - Most Recent Temp Pulse Resp BP Pulse Ox 98.2 F 74 18 167/81 H 97 07/12/19 15:43 07/12/19 16:07 07/12/19 15:43 07/12/19 16:07 07/12/19 15:43 Surgery Progress Note: Results - Labs Result Diagrams: 07/12/19 04:25 07/12/19 04:25
[2019-07-12] MEDS ORDERED: Potassium Chloride 40 MEQ in Premix Bag 1 BAG IVPB SCH (18:30)
[2019-07-12] MEDS: Enoxaparin Sodium 30 MG/0.3 ML SYRINGE SC SCH (22:13)
[2019-07-12] MEDS: Atorvastatin Calcium 40 MG TAB PO SCH (22:14)
[2019-07-12] MEDS: tiZANidine HCl 4 MG TAB PER TUBE SCH (22:14)
[2019-07-12] MEDS: Amlodipine 5 MG TAB PO SCH (22:15)
[2019-07-12] MEDS: FAT EMULSION IV SCH (22:43)
[2019-07-12] MEDS: [UNRECOGNIZED DRUG - OTHER] IV SCH (22:43)
[2019-07-12] MEDS: POTASSIUM ACETATE IV SCH (22:43)
[2019-07-12] MEDS: CALCIUM GLUCONATE IV SCH (22:43)
--- NOTE | 2019-07-12 22:50 | CON ---
DATE OF CONSULTATION: 07/12/2019 CHIEF COMPLAINT: Bowel obstruction, status post open laparotomy, now with sequelae of ileus and renal dysfunction as well as hypertension. HISTORY OF PRESENT ILLNESS: The patient came in on 07/04/2019 with abdominal pain. There he was noted to have bowel obstruction. He was ultimately taken to the operating room by Dr. Gee, where she had to perform lysis of innumerable adhesions. He did well postop, but since that time, he has had very slow return of bowel function and most recently has finally had a good BM on the day of this dictation and is passing gas, ambulating, and finally doing fairly well, although his renal functions have begun to deteriorate. This may in fact be due to lack of p.o. fluids. PAST MEDICAL HISTORY: Significant for chronic renal insufficiency, coronary artery disease, severe osteoarthritis of the knees and shoulder, history of rectal cancer, hypertension, hyperlipidemia, and obstructive sleep apnea. He occasionally has worsening of his CHF with leg edema and will take Lasix on an as-needed basis. 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 Yadav in the past. PAST SURGICAL HISTORY: Includes left shoulder surgery, right knee replacement, anterior resection with diverting ileostomy per Dr. Braswell in 2013, ileostomy reversal, coronary artery disease with bypass grafting [place] [address] Fall. SOCIAL HISTORY: He is recently . His with hepatitis C and liver cancer. He quit smoking about a year ago and has occasional alcohol use. Denies drug use. FAMILY HISTORY: Generally noncontributory. REVIEW OF SYSTEMS: CONSTITUTIONAL: He denies any fever, chills. He has had little appetite until recently. Now he is hungry. HEENT: Denies sores or drainage in eyes, ears, nose, or throat. CHEST: Denies shortness of breath or coughing. CARDIOVASCULAR: Denies chest pain or palpitations. ABDOMEN: Has basically had no nausea or vomiting recently, but has had distention and bloating, which is now finally being relieved with bowel movements and passing gas. : Denies blood in urine or stool. MUSCULOSKELETAL: Has trouble with arthritis in his knees and shoulder. SKIN: No new rashes or lesions. NEUROLOGIC: No trouble with mentation. PHYSICAL EXAMINATION: VITAL SIGNS: Blood pressure has been 167/81, pulse 79, respirations 18, he is afebrile, O2 sats in the 90s. GENERAL: This is an obese male, alert, oriented, and cooperative. HEENT: Normocephalic, atraumatic. Pupils are equal, round, and reactive to light. Extraocular muscles are intact. TMs, nares, and pharynx are clear. NECK: Supple. CHEST: Clear to auscultation. HEART: Regular rate and rhythm without murmur. ABDOMEN: Soft, mildly tender. Incision sites healing well. : Deferred. EXTREMITIES: Without clubbing, cyanosis, or edema. SKIN: Without rashes or lesions. LABORATORY DATA: Most recent lab work shows WBCs 10, hemoglobin 8.7, hematocrit 26, platelets of 171. Sodium 142, potassium 3.4, chloride 110, CO2 of 22, BUN 29, creatinine 1.8. ASSESSMENT: 1. Bowel obstruction. 2. Status post lysis of adhesions and relief of bowel obstruction. 3. Hypertension. 4. Renal insufficiency. 5. Musculoskeletal due to degenerative joint disease. PLAN: Plan will be to slowly advance his diet. Control his blood pressure. Trial of IV fluids to see if we can improve his renal function and control his blood pressure. Job ID: [id number]
[2019-07-13] MEDS: POTASSIUM ACETATE IV SCH ×2 (00:10→22:01)
[2019-07-13] MEDS: [UNRECOGNIZED DRUG - OTHER] IV SCH ×2 (00:10→22:01)
[2019-07-13] MEDS: CALCIUM GLUCONATE IV SCH ×2 (00:10→22:01)
[2019-07-13] MEDS: FAT EMULSION IV SCH ×2 (00:10→22:01)
[2019-07-13 05:42] LABS: Anion Gap 12 mmol/L (10-20); BUN (Urea Nitrogen) 29 mg/dL (8.4-25.7); Calc. Creatinine Clearance 75 mL/min (70-130); Calcium 8.4 mg/dL (7.8-10.44); Carbon Dioxide 24 mmol/L (23-31); Chloride 108 mmol/L (98-107); Estimated GFR-MDRD 39; Glucose 106 mg/dL (80-115); Potassium 4.1 mmol/L (3.5-5.1); Sodium 140 mmol/L (136-145)
[2019-07-13 07:01] LABS: Phosphorus 3.6 mg/dL (2.3-4.7)
[2019-07-13 07:04] LABS: ALT (SGPT) 32 U/L (8-55); AST (SGOT) 35 U/L (5-34); Albumin 3.2 g/dL (3.4-4.8); Alkaline Phosphatase 58 U/L (40-110); Anion Gap 14 mmol/L (10-20); BUN (Urea Nitrogen) 28 mg/dL (8.4-25.7); Bilirubin, Total 0.4 mg/dL (0.2-1.2); Calc. Creatinine Clearance 74 mL/min (70-130); Calcium 8.5 mg/dL (7.8-10.44); Carbon Dioxide 22 mmol/L (23-31); Chloride 108 mmol/L (98-107); Estimated GFR-MDRD 39; Globulin 2.4 g/dL (2.4-3.5); Glucose 104 mg/dL (80-115); Magnesium 1.7 mg/dL (1.6-2.6); Potassium 4.1 mmol/L (3.5-5.1); Protein, Total 5.6 g/dL (5.8-8.1); Sodium 140 mmol/L (136-145)
[2019-07-13] MEDS: Sodium Chloride 0.45% 1,000 ML IV SCH ×4 (08:04→15:31)
--- NOTE | 2019-07-13 08:15 | PRG ---
DATE OF SERVICE: 07/13/2019 SUBJECTIVE: Patient was seen and examined at bedside and overnight events noted. Patient denies any shortness of breath or chest pain or palpitation. No history of nausea or vomiting or diarrhea or fever or chills or cramps. OBJECTIVE: GENERAL: This is a well built male in no acute distress. VITAL SIGNS: Temperature 98.2. Heart rate 79. Respiratory rate 18. Blood pressure 139/81. HEENT: Atraumatic, normocephalic. Oral mucosa is moist NECK: Supple. CARDIOVASCULAR: S1, S2 heard. Rate and rhythm regular. RESPIRATORY: Clear to auscultation. GASTROINTESTINAL: Abdomen is soft. MUSCULOSKELETAL: No tenderness. No edema. DERMATOLOGIC: No skin rash. NEUROLOGIC: Alert and awake and oriented X3. No focal neurologic deficits. Moving all the extremities. PSYCHIATRIC: Mood and affect normal. LABORATORY DATA: Potassium 4.1, BUN is 28, creatinine is 1.8. ASSESSMENT AND PLAN: 1. Acute kidney injury on chronic kidney disease stage 3, stable. 2. Hypokalemia, adjusted by pharmacy through TPN. 3. Acidosis. I talked with the pharmacy to adjust acetate. They are adjusting the potassium. 4. Edema. 5. Hypoalbuminemia. Labs are stable. We will continue to monitor. Continue adjusting electrolytes through TPN. Job ID: [id number]
[2019-07-13 08:39] LABS: #Eosinphils 0.3 thou/uL (0.0-0.7); #Monocytes 0.5 thou/uL (0.11-0.59); #Neutrophils 10.7 thou/uL (1.40-6.50); %Basophils 0.1 % (0.0-1.0); %Eosinophils 2.6 % (0.0-10.0); %Lymphocytes 8.1 % (21.0-51.0); %Monocytes 3.6 % (0.0-10.0); %Neutrophils 85.6 % (42.0-75.0); Hemoglobin 9.2 g/dL (14.0-18.0); Mean Corpuscular HGB CONC 32.7 g/dL (32.0-36.0); Mean Corpuscular Hemoglobin 30.3 pg (27.0-31.0); Mean Corpuscular Volume 92.8 fL (78.0-98.0); Mean Platelet Volume 8.2 fL (7.4-10.4); Platelet Count 207 thou/uL (130-400); RBC Distribution Width 12.6 % (11.5-14.5); Red Blood Cell (RBC) Count 3.03 mill/uL (4.70-6.10); White Blood Cell (WBC) Count 12.5 thou/uL (4.8-10.8)
[2019-07-13] MEDS: Amlodipine 5 MG TAB PO SCH (09:06)
[2019-07-13] MEDS: Amlodipine 5 mg/Benazepril 10 mg CAP PO SCH (09:06)
[2019-07-13] MEDS: Carvedilol 25 MG TAB PER TUBE SCH (09:06)
[2019-07-13] MEDS: FLUoxetine HCl 20 MG CAP PO SCH (09:06)
[2019-07-13] MEDS: hydrALAZINE 25 MG TAB PO SCH ×2 (09:06→21:42)
[2019-07-13] MEDS: Aspirin 81 mg Enteric Coated Tablet PO SCH (09:07)
[2019-07-13] MEDS: Pantoprazole 40 MG VIAL IVP SCH (09:07)
[2019-07-13] MEDS ORDERED: hydrALAZINE 25 MG TAB PO SCH (15:00)
[2019-07-13] MEDS: Carvedilol 25 MG TAB PO SCH (17:55)
[2019-07-13] MEDS: tiZANidine HCl 4 MG TAB PER TUBE SCH (21:43)
[2019-07-13] MEDS: Atorvastatin Calcium 40 MG TAB PO SCH (21:43)
[2019-07-13] MEDS: Enoxaparin Sodium 30 MG/0.3 ML SYRINGE SC SCH (21:48)
--- NOTE | 2019-07-13 21:51 | PRG ---
DATE OF SERVICE: SUBJECTIVE: José Luis Burton is doing well today. He has been on clear liquids by Dr. Gee. He continues with TPN. Dr. Alden Steinberg has started him on a regular diet today. The patient has not had any nausea or vomiting. He has his NG tube in place. Dr. Gee has been checking residuals every 4 hours that have been anywhere from 60-120. I have asked the nurse to instead leave the NG tube clamped and checked the residual at 9 o'clock tonight and again at 8 o'clock in the morning. Pending the results with maybe he will get rid of his NG tube. OBJECTIVE: LUNGS: Clear to auscultation. CARDIAC: Regular rate and rhythm without murmur or gallop. ABDOMEN: Soft, mild tympany, mild distention. ASSESSMENT AND PLAN: We will have instructions for Dr. Gee to advance his diet slowly and continue with TPN to assure that he tolerates this. Please note, he has been having bowel movements. He still remains slightly distended, tympanitic with x-rays demonstrating air-fluid levels and distention. Job ID: [id number]
[2019-07-14] MEDS: Sodium Chloride 0.45% 1,000 ML IV SCH ×3 (02:08→12:22)
[2019-07-14 05:03] LABS: #Eosinphils 0.3 thou/uL (0.0-0.7); #Lymphocytes 1.1 thou/uL (1.20-3.40); #Monocytes 0.8 thou/uL (0.11-0.59); #Neutrophils 9.2 thou/uL (1.40-6.50); %Basophils 0.1 % (0.0-1.0); %Eosinophils 2.7 % (0.0-10.0); %Lymphocytes 9.3 % (21.0-51.0); %Monocytes 6.8 % (0.0-10.0); %Neutrophils 81.1 % (42.0-75.0); Hemoglobin 8.9 g/dL (14.0-18.0); Mean Corpuscular Hemoglobin 30.2 pg (27.0-31.0); Mean Corpuscular Volume 94.5 fL (78.0-98.0); Mean Platelet Volume 8.6 fL (7.4-10.4); Platelet Count 180 thou/uL (130-400); RBC Distribution Width 12.4 % (11.5-14.5); Red Blood Cell (RBC) Count 2.93 mill/uL (4.70-6.10); White Blood Cell (WBC) Count 11.4 thou/uL (4.8-10.8)
[2019-07-14 05:39] LABS: ALT (SGPT) 31 U/L (8-55); AST (SGOT) 26 U/L (5-34); Albumin 3.1 g/dL (3.4-4.8); Alkaline Phosphatase 55 U/L (40-110); Anion Gap 14 mmol/L (10-20); BUN (Urea Nitrogen) 29 mg/dL (8.4-25.7); Bilirubin, Total 0.4 mg/dL (0.2-1.2); Calc. Creatinine Clearance 66 mL/min (70-130); Calcium 8.5 mg/dL (7.8-10.44); Carbon Dioxide 24 mmol/L (23-31); Chloride 106 mmol/L (98-107); Estimated GFR-MDRD 36; Globulin 2.6 g/dL (2.4-3.5); Glucose 106 mg/dL (80-115); Magnesium 1.7 mg/dL (1.6-2.6); Phosphorus 4.1 mg/dL (2.3-4.7); Potassium 4.3 mmol/L (3.5-5.1); Protein, Total 5.7 g/dL (5.8-8.1); Sodium 140 mmol/L (136-145)
[2019-07-14] MEDS: hydrALAZINE 25 MG TAB PO SCH ×3 (08:39→21:06)
[2019-07-14] MEDS: Pantoprazole 40 MG VIAL IVP SCH (08:40)
[2019-07-14] MEDS: Carvedilol 25 MG TAB PO SCH ×2 (08:40→17:23)
[2019-07-14] MEDS: Amlodipine 5 mg/Benazepril 10 mg CAP PO SCH (08:40)
[2019-07-14] MEDS: FLUoxetine HCl 20 MG CAP PO SCH (08:40)
[2019-07-14] MEDS: Aspirin 81 mg Enteric Coated Tablet PO SCH (08:40)
--- NOTE | 2019-07-14 08:51 | PRG ---
DATE OF SERVICE: 07/14/2019 SUBJECTIVE: Patient was seen and examined at bedside and overnight events noted. Patient denies any shortness of breath or chest pain or palpitation. No history of nausea or vomiting or diarrhea or fever or chills or cramps. OBJECTIVE: GENERAL: This is a well-built male, in no acute distress. VITAL SIGNS: Temperature 98.2. Heart rate 69. Respiratory rate 22. Blood pressure 145/76. HEENT: Atraumatic, normocephalic. Oral mucosa is moist NECK: Supple. CARDIOVASCULAR: S1, S2 heard. Rate and rhythm regular. RESPIRATORY: Clear to auscultation. GASTROINTESTINAL: Abdomen is soft. MUSCULOSKELETAL: No tenderness. No edema. DERMATOLOGIC: No skin rash. NEUROLOGIC: Alert and awake and oriented X3. No focal neurologic deficits. Moving all the extremities. PSYCHIATRIC: Mood and affect normal. LABORATORY DATA: Potassium is 4.3, BUN is 29, and creatinine is 1.9. ASSESSMENT AND PLAN: 1. Acute kidney injury on chronic kidney disease, stage 3, stable. Creatinine is slightly creeping up. 2. stable. 3. Acidosis, better. 4. Edema, controlled. 5. Hypoalbuminemia. Avoid nephrotoxins. Continue on hydration as tolerated. We will follow. Electrolytes are stable. Job ID: [id number]
[2019-07-14] MEDS: tiZANidine HCl 4 MG TAB PER TUBE SCH (21:05)
[2019-07-14] MEDS: Enoxaparin Sodium 30 MG/0.3 ML SYRINGE SC SCH (21:05)
[2019-07-14] MEDS: Atorvastatin Calcium 40 MG TAB PO SCH (21:05)
[2019-07-14] MEDS: FAT EMULSION IV SCH (22:53)
[2019-07-14] MEDS: POTASSIUM ACETATE IV SCH (22:53)
[2019-07-14] MEDS: CALCIUM GLUCONATE IV SCH (22:53)
[2019-07-14] MEDS: [UNRECOGNIZED DRUG - OTHER] IV SCH (22:53)
[2019-07-15] MEDS: Sodium Chloride 0.45% 1,000 ML IV SCH ×3 (00:52→19:30)
--- NOTE | 2019-07-15 01:05 | PRG ---
DATE OF SERVICE: 07/14/2019 SUBJECTIVE: José Luis Burton' gastric tube residuals have been checked and they vary between 700 and 90 depending on his consumption. When Dr. Alden Steinberg ordered a regular diet, his residual was 700. It was less when he was n.p.o. He has not had any nausea or vomiting. He reports flatus and bowel movements. OBJECTIVE: VITAL SIGNS: Temperature 99.2 degrees, 74, 120/70. LUNGS: Clear to auscultation. CARDIAC: Regular rate and rhythm. No murmur or gallop. ABDOMEN: Distended, tympanitic. Bowel sounds present. LABORATORY DATA: White count 11 and hemoglobin 8.9. Basic metabolic profile is normal. BUN and creatinine 29 and 1.9, stable. ASSESSMENT AND PLAN: Slow GI recovery. Continue n.p.o., ice chips for now. He is on TPN. Dr. Gee will be returning Monday. I will see him tomorrow. I would continue the NG tube for now. I will obtain abdominal x-rays tomorrow to help in decision when the NG tube can be removed safely. Job ID: [id number]
[2019-07-15 07:44] LABS: #Eosinphils 0.3 thou/uL (0.0-0.7); #Monocytes 0.6 thou/uL (0.11-0.59); #Neutrophils 9.7 thou/uL (1.40-6.50); %Basophils 0.2 % (0.0-1.0); %Eosinophils 2.9 % (0.0-10.0); %Lymphocytes 8.3 % (21.0-51.0); %Monocytes 5.1 % (0.0-10.0); %Neutrophils 83.4 % (42.0-75.0); Mean Corpuscular Hemoglobin 29.9 pg (27.0-31.0); Mean Corpuscular Volume 93.4 fL (78.0-98.0); Mean Platelet Volume 8.7 fL (7.4-10.4); Platelet Count 240 thou/uL (130-400); RBC Distribution Width 12.6 % (11.5-14.5); Red Blood Cell (RBC) Count 3.01 mill/uL (4.70-6.10); White Blood Cell (WBC) Count 11.6 thou/uL (4.8-10.8)
[2019-07-15 07:59] LABS: Phosphorus 3.7 mg/dL (2.3-4.7)
[2019-07-15 08:02] LABS: ALT (SGPT) 28 U/L (8-55); AST (SGOT) 19 U/L (5-34); Albumin 3.5 g/dL (3.4-4.8); Alkaline Phosphatase 62 U/L (40-110); Anion Gap 13 mmol/L (10-20); BUN (Urea Nitrogen) 33 mg/dL (8.4-25.7); Bilirubin, Total 0.5 mg/dL (0.2-1.2); Calc. Creatinine Clearance 64 mL/min (70-130); Calcium 8.9 mg/dL (7.8-10.44); Carbon Dioxide 25 mmol/L (23-31); Chloride 104 mmol/L (98-107); Estimated GFR-MDRD 35; Globulin 2.7 g/dL (2.4-3.5); Glucose 116 mg/dL (80-115); Magnesium 1.8 mg/dL (1.6-2.6); Potassium 4.4 mmol/L (3.5-5.1); Protein, Total 6.2 g/dL (5.8-8.1); Sodium 138 mmol/L (136-145)
[2019-07-15] MEDS: Aspirin 81 mg Enteric Coated Tablet PO SCH (08:27)
[2019-07-15] MEDS: Amlodipine 5 mg/Benazepril 10 mg CAP PO SCH (08:27)
[2019-07-15] MEDS: FLUoxetine HCl 20 MG CAP PO SCH (08:28)
[2019-07-15] MEDS: Carvedilol 25 MG TAB PO SCH ×2 (08:28→16:12)
[2019-07-15] MEDS: hydrALAZINE 25 MG TAB PO SCH ×3 (08:29→20:44)
--- NOTE | 2019-07-15 10:37 | RAD ---
KUB AND UPRIGHT: HISTORY: Follow up small bowel obstruction. COMPARISON: 07/11/2019 FINDINGS: Dilated small bowel loops with air present within the colon, fairly similar to the previous exam. An NG tube is seen. The tip is in the fundus sidehole, still in the distal esophagus, and should be adva nced slightly. No free air or other findings. IMPRESSION: 1. Findings compatible with persistent small bowel obstruction. 2. Nasogastric tube which needs to be advanced slightly. POS: [facility]
--- NOTE | 2019-07-15 11:35 | PRG ---
DATE OF SERVICE: 07/15/2019 SUBJECTIVE: Patient was seen and examined at bedside and overnight events noted. Patient denies any shortness of breath or chest pain or palpitation. No history of nausea or vomiting or diarrhea or fever or chills or cramps. OBJECTIVE: GENERAL: This is a well-built male, in no apparent distress. VITAL SIGNS: Temperature 99. Heart rate 77. Respiratory rate 18, blood pressure 123/75. HEENT: Atraumatic, normocephalic. Oral mucosa is moist NECK: Supple. CARDIOVASCULAR: S1, S2 heard. Rate and rhythm regular. RESPIRATORY: Clear to auscultation. GASTROINTESTINAL: Abdomen is soft. MUSCULOSKELETAL: No tenderness. No edema. DERMATOLOGIC: No skin rash. NEUROLOGIC: Alert and awake and oriented X3. No focal neurologic deficits. Moving all the extremities. PSYCHIATRIC: Mood and affect normal. LABORATORY DATA: Potassium 4.4, BUN is 33, creatinine is 1.9. ASSESSMENT AND PLAN: 1. Acute kidney injury on chronic kidney stage 3, stable. 2. Acidosis. 3. Hypokalemia, better. 4. Edema. 5. Hypoalbuminemia. Labs are stable. We will continue to monitor. Job ID: [id number]
[2019-07-15 12:55] VITALS: BMI 35.9
--- NOTE | 2019-07-15 15:30 | PRG ---
DATE OF SERVICE: 07/15/2019 SUBJECTIVE: José Luis Burton is doing well today. He is passing flatus, not had a bowel movement. OBJECTIVE: VITAL SIGNS: Temperature 98.5 degrees, pulse 70, and blood pressure 133/83. ABDOMEN: His gastric drainage is greatly reduced in the last 24 hours on 270 mL. Abdominal x-rays reveal air-fluid levels. LUNGS: Clear to auscultation. CARDIAC: Regular rate and rhythm without murmur or gallops. ABDOMEN: Soft, much less distended, much less tympanitic. Excellent bowel sounds. ASSESSMENT AND PLAN: Resolving ileus. At this point, we would recommend removal of his NG. Start him on clear liquids. We would go very slow. Dr. Gee will return tomorrow to dictate further management. At this time, we would leave his TPN running. LABORATORY DATA: hemoglobin 9. Basic metabolic profile stable, CKD with BUN 33 and creatinine 1.94. Job ID: [id number]
[2019-07-15] MEDS: Enoxaparin Sodium 30 MG/0.3 ML SYRINGE SC SCH (20:41)
[2019-07-15] MEDS: Atorvastatin Calcium 40 MG TAB PO SCH (20:42)
[2019-07-15] MEDS: tiZANidine HCl 4 MG TAB PER TUBE SCH (20:43)
[2019-07-15] MEDS: CALCIUM GLUCONATE IV SCH (22:48)
[2019-07-15] MEDS: POTASSIUM ACETATE IV SCH (22:48)
[2019-07-15] MEDS: [UNRECOGNIZED DRUG - OTHER] IV SCH (22:48)
[2019-07-15] MEDS: FAT EMULSION IV SCH (22:48)
[2019-07-16] MEDS: Sodium Chloride 0.45% 1,000 ML IV SCH ×2 (00:56→18:17)
[2019-07-16 09:31] LABS: Anion Gap 13 mmol/L (10-20); BUN (Urea Nitrogen) 35 mg/dL (8.4-25.7); Calc. Creatinine Clearance 62 mL/min (70-130); Calcium 8.6 mg/dL (7.8-10.44); Carbon Dioxide 26 mmol/L (23-31); Chloride 104 mmol/L (98-107); Estimated GFR-MDRD 34; Glucose 122 mg/dL (80-115); Potassium 4.6 mmol/L (3.5-5.1); Sodium 138 mmol/L (136-145)
[2019-07-16] MEDS: Amlodipine 5 mg/Benazepril 10 mg CAP PO SCH (11:47)
[2019-07-16] MEDS: Carvedilol 25 MG TAB PO SCH ×2 (11:48→18:09)
[2019-07-16] MEDS: FLUoxetine HCl 20 MG CAP PO SCH (11:48)
[2019-07-16] MEDS: Aspirin 81 mg Enteric Coated Tablet PO SCH (11:48)
[2019-07-16] MEDS: hydrALAZINE 25 MG TAB PO SCH ×4 (12:53→20:58)
--- NOTE | 2019-07-16 12:57 | PRG ---
DATE OF SERVICE: 07/16/2019 SUBJECTIVE: Patient was seen and examined at bedside and overnight events noted. Patient denies any shortness of breath or chest pain or palpitation. No history of nausea or vomiting or diarrhea or fever or chills or cramps. OBJECTIVE: GENERAL: This is an obese male, in no acute distress. VITAL SIGNS: Temperature 98.5. Heart rate 69. Respiratory rate 16. Blood pressure 112/70. HEENT: Atraumatic, normocephalic. Oral mucosa is moist. NECK: Supple. CARDIOVASCULAR: S1, S2 heard. Rate and rhythm regular. RESPIRATORY: Clear to auscultation. GASTROINTESTINAL: Abdomen is soft. MUSCULOSKELETAL: No tenderness. No edema. DERMATOLOGIC: No skin rash. NEUROLOGIC: Alert and awake and oriented X3. No focal neurologic deficits. Moving all the extremities. PSYCHIATRIC: Mood and affect normal. LABORATORY DATA: Potassium 4.6, BUN is 35, and creatinine is 2.01. ASSESSMENT AND PLAN: 1. Acute kidney injury on chronic kidney disease. Renal function has slight bump. 2. Acidosis, stable. 3. Hypokalemia, replaced. 4. Edema, controlled. 5. Hypoalbuminemia. Renal function has slight bump and we will start him on IV fluids as tolerated. Job ID: [id number]
[2019-07-16] MEDS: Sodium Chloride 0.9% 1,000 ML IV SCH ×2 (16:55→21:51)
[2019-07-16] MEDS: Atorvastatin Calcium 40 MG TAB PO SCH (20:59)
[2019-07-16] MEDS: tiZANidine HCl 4 MG TAB PER TUBE SCH (20:59)
[2019-07-16] MEDS: Enoxaparin Sodium 30 MG/0.3 ML SYRINGE SC SCH (21:00)
--- NOTE | 2019-07-16 21:33 | PDOC.GSPN ---
Surgery Progress Note: Subj - Subjective Narrative: Patient feels good. Liquid bowel movement earlier today and is passing lots of gas. He does not feel nauseated and does not have any abdominal pain. Vital signs are good. Abdomen is softer and less tympanitic. Nontender to palpation with normal bowel sounds. Assessment/plan: Prolonged postoperative ileus appears to be resolving. He is tolerating a clear liquid diet and I have advanced to full liquids. I'm going to stop his TPN after this bag. The patient wanted to go home today. I'm going to keep him at least another day. Surgery Progress Note: Obj - Vital signs Vital signs: Vital Signs - Most Recent Temp Pulse Resp BP Pulse Ox 99.0 F 81 16 100/64 98 07/16/19 17:09 07/16/19 20:58 07/16/19 17:09 07/16/19 20:58 07/16/19 17:09 Surgery Progress Note: Results - Labs Result Diagrams: 07/15/19 07:30 07/16/19 08:51 Lab results: Laboratory Results - last 24 hr 07/16/19 07/16/19 12:06 17:36 POC Glucose 131 H 139 H
[2019-07-17 05:55] LABS: Anion Gap 15 mmol/L (10-20); BUN (Urea Nitrogen) 35 mg/dL (8.4-25.7); Calc. Creatinine Clearance 61 mL/min (70-130); Calcium 8.3 mg/dL (7.8-10.44); Carbon Dioxide 24 mmol/L (23-31); Chloride 104 mmol/L (98-107); Estimated GFR-MDRD 33; Glucose 105 mg/dL (80-115); Potassium 4.7 mmol/L (3.5-5.1); Sodium 138 mmol/L (136-145)
[2019-07-17 05:59] LABS: ALT (SGPT) 20 U/L (8-55); AST (SGOT) 16 U/L (5-34); Albumin 3.3 g/dL (3.4-4.8); Alkaline Phosphatase 59 U/L (40-110); Anion Gap 14 mmol/L (10-20); BUN (Urea Nitrogen) 37 mg/dL (8.4-25.7); Bilirubin, Total 0.5 mg/dL (0.2-1.2); Calc. Creatinine Clearance 58 mL/min (70-130); Calcium 8.4 mg/dL (7.8-10.44); Carbon Dioxide 25 mmol/L (23-31); Chloride 104 mmol/L (98-107); Estimated GFR-MDRD 32; Globulin 2.6 g/dL (2.4-3.5); Glucose 108 mg/dL (80-115); Magnesium 1.9 mg/dL (1.6-2.6); Phosphorus 4.3 mg/dL (2.3-4.7); Potassium 4.7 mmol/L (3.5-5.1); Protein, Total 5.9 g/dL (5.8-8.1); Sodium 138 mmol/L (136-145)
[2019-07-17] MEDS: FLUoxetine HCl 20 MG CAP PO SCH (08:53)
[2019-07-17] MEDS: Carvedilol 25 MG TAB PO SCH (08:53)
[2019-07-17] MEDS: Amlodipine 5 mg/Benazepril 10 mg CAP PO SCH (08:53)
[2019-07-17] MEDS: Aspirin 81 mg Enteric Coated Tablet PO SCH (08:54)
[2019-07-17] MEDS: Sodium Chloride 0.9% 1,000 ML IV SCH (08:55)
--- NOTE | 2019-07-17 12:49 | PRG ---
DATE OF SERVICE: 07/17/2019 SUBJECTIVE: A 63-year-old gentleman is being seen for acute kidney injury. The patient denied nausea, vomiting, or chest pain. OBJECTIVE: GENERAL: The patient is awake and alert. VITAL SIGNS: Pulse 77, breathing 16, blood pressure GENERAL APPEARANCE AND MENTAL STATUS: Fair. HEAD/NECK: Normocephalic. Atraumatic. EYES: EOMI. No deformity. EARS: Clear. No ulcers. NOSE: Intact. No lesions. MOUTH: Clear. No discharge. THROAT: Clear. No exudate. LUNGS: Clear. No crackles. CARDIAC: S1, S2. No rub. ABDOMEN: Benign. Bowel sounds positive. GENITALIA/RECTUM: Masters absent. BACK/EXTREMITIES: Edema 0+. NEUROLOGICAL: Alert and motor intact. SKIN: LYMPHATICS: LABORATORY DATA: Reviewed. ASSESSMENT AND PLAN: 1. Chronic kidney disease stage 3, stable. 2. Hypertension, stable. 3. Acute kidney injury, stable. No indication for dialysis. Job ID: [id number]
[2019-07-17 15:03] VITALS: BP 126/73; TEMP 98.1
--- NOTE | 2019-07-18 13:41 | DIS ---
DATE OF ADMISSION: 07/04/2019 DATE OF DISCHARGE: 07/17/2019 FINAL DIAGNOSES: 1. Small bowel obstruction due to extensive intraabdominal adhesions. 2. Hypertension. 3. Prolonged postoperative ileus. 4. Coronary artery disease. 5. Chronic renal insufficiency with acute worsening of renal function. 6. History of rectal cancer. 7. Obstructive sleep apnea. 8. Protein-calorie malnutrition. PROCEDURES PERFORMED: Extensive laparoscopic hand-assisted adhesiolysis on 07/04/2019 and TPN nutritional support. HISTORY: Mr. Burton is a 63-year-old man, who is status post low anterior resection with diverting ileostomy and later ileostomy takedown for rectal cancer. He has been having intermittent constipation and bloating for several months, but presented to the hospital with acute onset of severe abdominal pain. He had peritoneal signs on exam and a CT was concerning for closed-loop obstruction. He was taken emergently to the operating room. This bowel was entirely viable that had innumerable adhesions causing severe obstruction. He underwent extensive adhesiolysis and was maintained on the ventilator overnight. He extubated later that day, but had a prolonged postoperative ileus requiring continued NG decompression and eventually TPN for nutritional support. He did have slow return of bowel function with passage of flatus and bowel movement, although he remained somewhat distended. However, his abdominal pain resolved and he was able to tolerate a clear liquid and then a full liquid diet, and his TPN was discontinued. His renal function had initially worsened with this illness, but returned to its baseline by the time of his discharge. He was discharged home on a full liquid diet with instructions to take plenty of fluids and to return if he developed worsening abdominal pain, bloating, distention, or nausea. At the time of his discharge, his abdomen was soft and nontender with normal bowel sounds. He was passing flatus and having frequent although small bowel movement. He is to resume his home medications. No additional medications were prescribed. Job ID: [id number]
--- NOTE | 2019-07-18 23:12 | PQF ---
FELIBERTO CUMMINS KIMIYE MD [id number] CLINICAL DOCUMENTATION CLARIFICATION FORM: POST DISCHARGE Addendum to original discharge summary date: ____ Late entry note date: __ DATE: 07/18/19 ATTN: Paula Sullivan Please exercise your independent, professional judgment in responding to the clarification form. Clinical indicators are provided on the bottom of this form for your review Please check appropriate box(s): [ ] Acute respiratory failure [ ] Acute on chronic respiratory failure [ ] Acute respiratory failure related to the surgical procedure [ ] Acute on chronic respiratory failure related to the surgical procedure [ ] No Respiratory Failure [ ] Other diagnosis [ ] Unable to determine For continuity of documentation, please document condition throughout progress notes and discharge summary. Thank You. CLINICAL INDICATORS - SIGNS / SYMPTOMS / LABS Consult p1 07/04 Dr Zurita Underwent surgey last night, left overnight on the vent Consult p1 07/04 Dr Zurita Pulmonary is consulted regarding his vent management Consult p2 07/04 Dr Zurita Diagnostic date : X-ray shows questionable left-sided infiltrate RISKS FACTORS Consult p1 07/04 63 year-old Gentlemen Consult p1 07/04 Morbidly obese Consult p1 07/04 Sleep apnea Consult p1 07/04 - COPD Consult p2 07/04 - Status post lap, acute abdomen Consult p2 07/04 - Respiratory Failure TREATMENT: Pulmo Consult p1 07/04 Andry Loo Pulmo Consult p2 07/04 - Home Cpap Pulmo Consult p2 07/04 - Will be weaned and extubated (This form is maintained as a part of the permanent medical record) 2014 [email or web address]. All Rights Reserved Maria A [email or web address] [not provided] MTDD
== END 2019-07-17 16:58 | disposition home or self-care (01) | DRG 335 ==
LOC: ERS 17:29 → SDC/OP 21:44 → CCU 07-04 03:55 → SURG B 07-05 19:15
PROVIDERS: ADMIT Surgery; ATTEND Surgery
PROC: 0DNB4ZZ Release Ileum, Percutaneous Endoscopic Approach (ICD-10-PCS; principal; 2019-07-04)
PROC: 0DNM4ZZ Release Descending Colon, Percutaneous Endoscopic Approach (ICD-10-PCS; 2019-07-04)
PROC: 3E0234Z Introduction of Serum, Toxoid and Vaccine into Muscle, Percutaneous Approach (ICD-10-PCS; 2019-07-04)
PROC: 3E02340 Introduction of Influenza Vaccine into Muscle, Percutaneous Approach (ICD-10-PCS; 2019-07-04)
DX: K56.51 Intestinal adhesions [bands], with partial obstruction (principal); N17.0 Acute kidney failure with tubular necrosis; J96.90 Respiratory failure, unspecified, unspecified whether with hypoxia or hypercapnia; I50.22 Chronic systolic (congestive) heart failure; E87.2 Acidosis; I13.0 Hypertensive heart and chronic kidney disease with heart failure and stage 1 through stage 4 chronic kidney disease, or unspecified chronic kidney disease; K56.7 Ileus, unspecified; E87.6 Hypokalemia; I25.10 Atherosclerotic heart disease of native coronary artery without angina pectoris; E78.5 Hyperlipidemia, unspecified; Z96.651 Presence of right artificial knee joint; E66.01 Morbid (severe) obesity due to excess calories; N18.3 Chronic kidney disease, stage 3 (moderate); D63.1 Anemia in chronic kidney disease; I25.5 Ischemic cardiomyopathy; G47.33 Obstructive sleep apnea (adult) (pediatric); E88.09 Other disorders of plasma-protein metabolism, not elsewhere classified; M17.12 Unilateral primary osteoarthritis, left knee; J44.9 Chronic obstructive pulmonary disease, unspecified; M19.012 Primary osteoarthritis, left shoulder; Z87.891 Personal history of nicotine dependence; Z23 Encounter for immunization; Z79.899 Other long term (current) drug therapy; Z79.82 Long term (current) use of aspirin; Z68.35 Body mass index [BMI] 35.0-35.9, adult; Z95.1 Presence of aortocoronary bypass graft; Z85.038 Personal history of other malignant neoplasm of large intestine; Z92.21 Personal history of antineoplastic chemotherapy; Z92.3 Personal history of irradiation; Z95.5 Presence of coronary angioplasty implant and graft
CPT/HCPCS: 36415; 36416; 71045; 74018; 74019; 74022; 74177; 80048; 80053; 80061; 81003; 81015; 83605; 83690; 83735; 84100; 84134; 84484; 85025; 85610; 85730; 87040; 90471; 90686; 90732; 93005; 93010; 93306; 94002; 94640; 96361; 96374; 96375; A4217; C9113; G0008; G0009; J0131; J0694; J1642; J1650; J2250; J2270; J2405; J2704; J3010; J3475; J3480; J3490; J7050; J7070; J7620; Q9966

== ENCOUNTER 2021-06-15 10:00 | Outpatient (CLI) | payer MEDICARE | END 2021-06-15 10:01 | disposition home or self-care (01) | LOC: BICULT 10:00 | PROVIDERS: ATTEND Internal Medicine Nephrology | DX: N18.30 Chronic kidney disease, stage 3 unspecified (principal) | CPT/HCPCS: 76770 ==

== ENCOUNTER 2022-08-16 11:43 | Observation (INO) | payer MEDICARE ==
[2022-08-16 14:37] VITALS: BMI 41.8
[2022-08-16] MEDS ORDERED: tiZANidine HCl 4 MG TAB PO PRN (15:47)
[2022-08-16] MEDS: Sodium Chloride 0.9% 1,000 ML IV SCH (16:29)
[2022-08-16] MEDS: Rosuvastatin 20 MG TAB PO SCH (20:24)
[2022-08-16] MEDS: cloNIDine 0.1 MG TAB PO SCH (20:24)
[2022-08-16] MEDS: Carvedilol 25 MG TAB PO SCH (20:24)
[2022-08-17] MEDS: Sodium Chloride 0.9% 1,000 ML IV SCH ×2 (01:48→14:14)
[2022-08-17] MEDS: Carvedilol 25 MG TAB PO SCH ×2 (05:24→19:42)
[2022-08-17] MEDS: Calcitriol 0.25 MCG CAP PO SCH (05:24)
[2022-08-17] MEDS: Colchicine 0.6 MG TAB PO SCH (05:24)
[2022-08-17] MEDS: cloNIDine 0.1 MG TAB PO SCH ×2 (05:26→19:42)
[2022-08-17 05:56] LABS: Anion Gap 13 mmol/L (10-20); BUN (Urea Nitrogen) 42 mg/dL (8.4-25.7); Calc. Creatinine Clearance 59 mL/min (70-130); Calcium 8.5 mg/dL (7.8-10.44); Carbon Dioxide 21 mmol/L (23-31); Chloride 110 mmol/L (98-107); Estimated GFR 32; Glucose 107 mg/dL (80-115); Potassium 4.8 mmol/L (3.5-5.1); Sodium 139 mmol/L (136-145)
[2022-08-17] MEDS ORDERED: Lidocaine 1% (PF) 30 ML VIAL ONE (06:34)
[2022-08-17] MEDS ORDERED: Heparin 10,000 UNITS/ 10 ML VIAL ONE (06:34)
[2022-08-17] MEDS ORDERED: Protamine Sulfate 50 MG/5 ML VIAL ONE (06:34)
[2022-08-17] MEDS ORDERED: FENTANYL 50 MCG/ML 1 ML VIAL ONE (07:10)
[2022-08-17] MEDS ORDERED: Midazolam HCl 2 mg/2 ml Vial ONE (07:10)
[2022-08-17] MEDS ORDERED: Acetaminophen/Codeine 30-300mg Tablet PO PRN ×2 (08:08)
[2022-08-17] MEDS ORDERED: Sodium Chloride 0.9% 200 ML IV PRN (08:08)
[2022-08-17] MEDS ORDERED: Nitroglycerin 0.4 MG TAB (25 Tab Bottle) SL PRN (08:08)
[2022-08-17] MEDS ORDERED: Sodium Chloride 0.9% 1,000 ML IV SCH (08:15)
[2022-08-17] MEDS: Aspirin 81 mg Enteric Coated Tablet PO SCH (08:35)
[2022-08-17] MEDS ORDERED: Aspirin Chewable 81 MG TAB PO SCH (09:00)
[2022-08-17] MEDS ORDERED: hydrALAZINE 25 MG TAB PO SCH (09:30)
[2022-08-17] MEDS: hydrALAZINE 25 MG TAB PO SCH ×2 (14:17→19:43)
[2022-08-17] MEDS ORDERED: Iopamidol 370 76% 100 ML VIAL ONE (15:44)
[2022-08-17] MEDS: Rosuvastatin 20 MG TAB PO SCH (19:43)
[2022-08-18] MEDS: Sodium Chloride 0.9% 1,000 ML IV SCH (03:03)
[2022-08-18 05:30] LABS: Anion Gap 9 mmol/L (10-20); BUN (Urea Nitrogen) 34 mg/dL (8.4-25.7); Calc. Creatinine Clearance 68 mL/min (70-130); Calcium 8.6 mg/dL (7.8-10.44); Carbon Dioxide 22 mmol/L (23-31); Chloride 112 mmol/L (98-107); Estimated GFR 38; Glucose 107 mg/dL (80-115); Potassium 4.6 mmol/L (3.5-5.1); Sodium 138 mmol/L (136-145)
[2022-08-18] MEDS: hydrALAZINE 25 MG TAB PO SCH (08:12)
[2022-08-18] MEDS: cloNIDine 0.1 MG TAB PO SCH (08:12)
[2022-08-18] MEDS: Aspirin 81 mg Enteric Coated Tablet PO SCH (08:12)
[2022-08-18] MEDS: Carvedilol 25 MG TAB PO SCH (08:12)
[2022-08-18] MEDS: Calcitriol 0.25 MCG CAP PO SCH (08:12)
[2022-08-18] MEDS: Colchicine 0.6 MG TAB PO SCH (08:20)
[2022-08-18] MEDS ORDERED: hydrALAZINE 25 MG TAB PO SCH ×2 (09:00→15:00)
[2022-08-18 11:39] VITALS: BP 150/77
[2022-08-18 11:45] VITALS: TEMP 98.6
== END 2022-08-18 16:12 | disposition home or self-care (01) ==
LOC: SURG A 13:40 → 2SW 14:22
PROVIDERS: ADMIT Internal Medicine Cardiovascular Disease; ATTEND Internal Medicine Cardiovascular Disease
PROC: 4A023N7 Measurement of Cardiac Sampling and Pressure, Left Heart, Percutaneous Approach (ICD-10-PCS; principal; 2022-08-17)
PROC: B2111ZZ Fluoroscopy of Multiple Coronary Arteries using Low Osmolar Contrast (ICD-10-PCS; 2022-08-17)
PROC: B2181ZZ Fluoroscopy of Left Internal Mammary Bypass Graft using Low Osmolar Contrast (ICD-10-PCS; 2022-08-17)
PROC: B2171ZZ Fluoroscopy of Right Internal Mammary Bypass Graft using Low Osmolar Contrast (ICD-10-PCS; 2022-08-17)
DX: I25.10 Atherosclerotic heart disease of native coronary artery without angina pectoris (principal); I25.82 Chronic total occlusion of coronary artery; T82.855A Stenosis of coronary artery stent, initial encounter; T82.857A Stenosis of other cardiac prosthetic devices, implants and grafts, initial encounter; E78.00 Pure hypercholesterolemia, unspecified; I25.5 Ischemic cardiomyopathy; I12.9 Hypertensive chronic kidney disease with stage 1 through stage 4 chronic kidney disease, or unspecified chronic kidney disease; N18.32 Chronic kidney disease, stage 3b; G47.33 Obstructive sleep apnea (adult) (pediatric); M79.661 Pain in right lower leg; M79.662 Pain in left lower leg; Z85.038 Personal history of other malignant neoplasm of large intestine; Z87.891 Personal history of nicotine dependence; Z79.82 Long term (current) use of aspirin; Z79.899 Other long term (current) drug therapy; Z95.1 Presence of aortocoronary bypass graft; Z95.5 Presence of coronary angioplasty implant and graft; Z20.822 Contact with and (suspected) exposure to COVID-19; Y71.3 Surgical instruments, materials and cardiovascular devices (including sutures) associated with adverse incidents
CPT/HCPCS: 80048 ×2; 85347; 93455; C1769 ×2; J3010; U0003; U0005; 36415; 99152; 99153; J1644; J2001; J2250; J2720; J7050; Q9967

== ENCOUNTER 2023-07-19 12:48 | Outpatient (CLI) | payer MEDICARE | END 2023-07-19 12:49 | disposition home or self-care (01) | LOC: BICRAD 12:48 | PROVIDERS: ATTEND Specialist | DX: M54.9 Dorsalgia, unspecified (principal); M47.816 Spondylosis without myelopathy or radiculopathy, lumbar region | CPT/HCPCS: 72100 ==

== ENCOUNTER 2025-07-04 09:19 | Outpatient (CLI) | payer MEDICARE ==
[2025-07-04 12:19] LABS: #Basophils 0.04 10x3/uL (0.0-0.2); #Eosinophils 0.17 10x3/uL (0.0-0.7); #Monocytes 0.44 10x3/uL (0.11-0.59); #Neutrophils 5.72 10x3/uL (1.40-6.50); %Basophils 0.6 % (0.0-1.0); %Eosinophils 2.4 % (0.0-10.0); %Lymphocytes 10.6 % (21.0-51.0); %Monocytes 6.1 % (0.0-10.0); %Neutrophils 79.6 % (42.0-75.0); Hematocrit 29.0 % (42.0-52.0); Hemoglobin 9.3 g/dL (14.0-18.0); Mean Corpuscular Hemoglobin 29.9 pg (27.0-31.0); Mean Corpuscular Volume 93.2 fL (78.0-98.0); Platelet Count 130 10x3/uL (130-400); Red Blood Cell (RBC) Count 3.11 mill/uL (4.70-6.10); White Blood Cell (WBC) Count 7.18 10x3/uL (4.8-10.8)
[2025-07-04 12:35] LABS: Anion Gap 15 mmol/L (10-20); BUN (Urea Nitrogen) 40 mg/dL (8.4-25.7); Calc. Creatinine Clearance 0 mL/min (70-130); Calcium 9.1 mg/dL (7.8-10.44); Carbon Dioxide 20 mmol/L (23-31); Chloride 106 mmol/L (98-107); Glucose 97 mg/dL (80-115); Potassium 4.7 mmol/L (3.5-5.1); Sodium 136 mmol/L (136-145)
== END 2025-07-04 09:20 | disposition home or self-care (01) ==
LOC: LABBT 09:19
PROVIDERS: ATTEND Orthopaedic Surgery
DX: Z01.812 Encounter for preprocedural laboratory examination (principal); M19.011 Primary osteoarthritis, right shoulder
CPT/HCPCS: 80048; 85025

== ENCOUNTER → 2025-07-08 | Day surgery (SDC) | payer MEDICARE ==
[2025-07-04 10:14] VITALS: BMI 40.2
[~2025-07-08] MED LIST changes: +CEFAZOLIN 2 GM VIAL ONE; +HYDROcodone/Acetaminophen 10/325 mg Tablet PO PRN; +HYDROcodone/Acetaminophen 10/325 mg Tablet PO SCH; -ISOVUE-370 76%-LOCM 1 ML ONE; +Ondansetron PF 4 MG/2 ML Vial IVP PRN; +Ondansetron PF 4 MG/2 ML Vial ONE; +PHENYLEPHRINE-NS 100 MCG/ML 10 ML SYRINGE ONE; +PROPOFOL 20 ML ONE; +Ropivacaine 0.2% 550 ML 550 ML NERVE BLCK SCH; +Ropivacaine 0.2% HCl/PF 20 ML ONE; +Ropivacaine 0.5% HCl/PF (150 MG/30 ML VIAL) ONE; +SUGAMMADEX SODIUM 200 MG/2 ML VIAL ONE; -Succinylcholine Chloride 20 MG/ML 10 ml SYRINGE FS ONE; +Tranexamic Acid 1,000 MG/10 ML VIAL ONE; +fentaNYL PF 100 MCG/2 ML SYRINGE ONE
== END ==
LOC: SDC 06:03
PROVIDERS: ATTEND Orthopaedic Surgery
PROC: 0RRJ00Z Replacement of Right Shoulder Joint with Reverse Ball and Socket Synthetic Substitute, Open Approach (ICD-10-PCS; principal; 2025-07-08)
PROC: 3E0T3BZ Introduction of Anesthetic Agent into Peripheral Nerves and Plexi, Percutaneous Approach (ICD-10-PCS; 2025-07-08)
DX: M19.011 Primary osteoarthritis, right shoulder (principal); M75.101 Unspecified rotator cuff tear or rupture of right shoulder, not specified as traumatic; I10 Essential (primary) hypertension; F17.210 Nicotine dependence, cigarettes, uncomplicated; Z95.1 Presence of aortocoronary bypass graft; Z85.038 Personal history of other malignant neoplasm of large intestine; Z96.653 Presence of artificial knee joint, bilateral
CPT/HCPCS: 23472; 64416; 73030; 82962; A4306; C1713 ×5; C1776 ×3; J1100; J2250; J2405; J2704; J2795 ×3; 36416; J0169; J0665